=== PATIENT | female | born 1955 ===

== ENCOUNTER 2018-07-15 16:28 | Inpatient (IN) | payer MEDICARE, MEDICAID ==
[2018-07-15 16:40] VITALS: BMI 28.8
[2018-07-15] MEDS ORDERED: Sodium Chloride 0.9% 1,000 ML IV ONE (16:42)
--- NOTE | 2018-07-15 16:43 | C.PDOC ---
History Of Present Illness 62 y/o female with PMHx of depression and anxiety brought in via EMS for possible overdose. As per family, EMS was called due to concern for intentional overdose of Oxycodone and Xanax today. All history provided by family. denies patient having prior hx of suicidal ideation. He states that patient usually takes these medications as prescribed. Patient was last seen yesterday and was normal. This morning, he got a call from her stating that she was depressed and took extra pills, unknown quantity. As per EMS, no response with intranasal Narcan given en route, minimal response with Narcan 2 mg IV. Patient then fell asleep again en route per EMS. Time Seen by Provider: 07/15/18 16:31 Chief Complaint (Nursing): Substance Abuse History Per: Patient History/Exam Limitations: clinical condition Onset/Duration Of Symptoms: Unknown Suicide/Self Injury Attempted (Context): Ingestion (Xanax and Oxycodone) Involuntary Hold By: None Additional History Per: EMS, Family Past Medical History Reviewed: Historical Data, Nursing Documentation, Vital Signs Vital Signs: Last Vital Signs Temp 97.4 F L 07/15/18 16:40 Pulse 73 07/15/18 16:40 Resp 11 L 07/15/18 16:40 BP 100/63 07/15/18 16:40 Pulse Ox 100 07/15/18 17:55 - Medical History PMH: Anxiety, Depression, Hypercholesterolemia Denies: Chronic Kidney Disease Surgical History: Endoscopy, Tonsillectomy - [facility] COLONOSCOPY (04/18/13) ENDOSC POLYPECTOMY OF LG INTEST (06/01/14) TETANUS TOXOID ADMINIST (07/31/13) THERAPEUT DISTENT BLADD (01/27/15) Family History: States: Unknown Family Hx - Social History Hx Tobacco Use: No Hx Alcohol Use: No Hx Substance Use: Yes - Immunization History Hx Tetanus Toxoid Vaccination: No Hx Influenza Vaccination: No Hx Pneumococcal Vaccination: No Review Of Systems Review Of Systems: ROS cannot be obtained secondary to pt's inabilty to answer questions. Physical Exam - Physical Exam Skin: Normal Color, Warm, Dry Head: Atraumatic, Normacephalic Eye(s): bilateral: Other (Pupils equal, sluggish) Neck: Supple Chest: Symmetrical Cardiovascular: Rhythm Regular, No Murmur Respiratory: Other (Lungs with spontaneous respirations, Normal rate) Gastrointestinal/Abdominal: Soft, No Tenderness, No Distention Extremity: Bilateral: Atraumatic, Normal Color And Temperature Pulses: Left Radial: Normal, Right Radial: Normal Neurological/Psych: Normal Reflexes (+) deep gag reflex with stimulus, (+) deep pain stimulus), Other (Patient appears grossly intoxicated; nonverbal, not interactive) ED Course And Treatment - Laboratory Results Result Diagrams: 07/15/18 16:55 07/15/18 16:55 Interpretation Of Abnormal: ABG NO HYPOXEMIA, CO2 RETENTION. ECG: Interpreted By Me ECG Rhythm: Sinus Rhythm Rate From EC O2 Sat by Pulse Oximetry: 100 (Non-Rebreather) Pulse Ox Interpretation: Normal - Radiology CXR: Interpreted by Me, Viewed By Me CXR Interpretation: Yes: No Acute Disease Progress - Re-Evaluation Re-evaluation Note: 07/15/18 17:17 SP STRAIGHT CATH. PT SPONT AWOKE. PS INTENTIONALLY TOOK PERCOCET, XANAX, CYMBALTA DUE TO CHRONIC PAIN EXAC. PT DENIES SI/SA 07/15/18 17:25 RECUR SLEEPING. 100% O2 CAPNOMTER @ 48. EXAM UNCH PRIOR 07/15/18 17:37 D/W [place] POISONS: RECOMMEND REPEAT TYL, LFT, PT/T 4 HRS AFTER INITIAL DRAW. CAN WAIT FOR ACETADOTE DOSE PENDING CMP. GIVE ACETADOTE IF ELEV LFT. 07/15/18 17:54 SP NARCAN, PT W IMPROVED RESPONSE. PT NOW STATES S/P INTENTIONAL OVERDOSE AND TOOK "WHOLE BOTTLE" OF PERCOCET, XANAX AND CYMBALTA. UNK DOSE AND QUANTITY. WILL START ACETADOTE 07/15/18 18:00 D/W DR OSMAN C/F ICU : AWARE OF ER FINDINGS, ACCEPTS FOR ICU 07/15/18 18:03 D/W DR Qasim JUSTIN [employer] TESTER WILL ADMIT - Data Reviewed Data Reviewed: Lab, Diagnostic imaging, EKG, Old records - Critical Care Citical Care: Excluding Proc Time Critical Care Time: 120 minutes - Continuity of Care Discussed patient case with:: Patient, Family-HIPPA compliant Medical Decision Making Medical Decision Making: Impression: Overdose, Suicide attempt Initial Plan: --EKG --ABG --Alcohol serum --Urine drug screen --Salicylate --Acetaminophen --CMP --CBC --UA --Chest X-Ray --IV fluids Disposition Counseled Patient/Family Regarding: Studies Performed, Diagnosis - Disposition Disposition: HOSPITALIZED Disposition Time: 18:01 Condition: CRITICAL Forms: [facility] (Yoruba) - POA Present On Arrival: None - Clinical Impression Clinical Impression: Intentional acetaminophen overdose, Overdose of benzodiazepine, Respiratory depression - Scribe Statement The provider has reviewed the documentation as recorded by the Juliethibanna Jimenez Provider Attestation: All medical record entries made by the Juliethibe were at my direction and personally dictated by me. I have reviewed the chart and agree that the record accurately reflects my personal performance of the history, physical exam, medical decision making, and the department course for this patient. I have also personally directed, reviewed, and agree with the discharge instructions and disposition. Decision To Admit - Pt Status Changed To: Hospital Disposition Of: Inpatient - Admit Certification Admit to Inpatient:: After my assessment, the patient will require hospitalization for at least two midnights. This is because of the severity of symptoms shown, intensity of services needed, and/or the medical risk in this patient being treated as an outpatient. - InPatient: Physician Admission Certification: I certify that this patient requires 2 or more midnights of care for the following reason:: SEE NOTE - . Bed Request Type: ICU Admitting Physician: Dea Justin Patient Diagnosis: Intentional acetaminophen overdose, Overdose of benzodiazepine, Respiratory depression
[2018-07-15 16:59] LABS: BASO # 0.1 K/uL (0.0-0.2); BASO % 0.6 % (0.0-2.0); EOS % 0.4 % (0.0-4.0); HEMOGLOBIN 13.2 g/dL (11.0-16.0); LYMPH # 1.7 K/uL (1.0-4.3); MEAN CELL VOLUME 93.4 fL (81.0-99.0); MEAN CORPUSCULAR HEMOGLOBIN 30.9 pg (27.0-31.0); MEAN CORPUSCULAR HGB CONC 33.1 g/dL (33.0-37.0); MEAN PLATELET VOLUME 7.6 fL (7.2-11.7); MONO # 0.6 K/uL (0.0-0.8); MONO % 6.7 % (0.0-10.0); NEUT # 6.5 K/uL (1.8-7.0); NEUT % 73.3 % (50.0-75.0); NRBC % 0.1 % (0.0-2.0); RBC 4.29 Mil/uL (3.80-5.20); RED CELL DISTRIBUTION WIDTH 13.6 % (11.5-14.5)
[2018-07-15 17:03] LABS: WHITE BLOOD COUNT 8.8 K/uL (4.8-10.8)
[2018-07-15 17:25] LABS: ABG ALLEN TEST POS; ARTERIAL BLOOD GAS HCO3 23.8 mmol/L (21-28); ARTERIAL BLOOD GAS O2 SAT 99.2 % (95-98); ARTERIAL BLOOD GAS PCO2 44 mm/Hg (35-45); ARTERIAL BLOOD GAS PH 7.35 (7.35-7.45); ARTERIAL BLOOD GAS PO2 177 mm/Hg (80-100); ARTERIAL BLOOD GAS TCO2 25.7 mmol/L (22-28)
[2018-07-15 17:27] LABS: SALICYLATE < 1.0 mg/dL 1
[2018-07-15 17:32] LABS: SQUAMOUS EPITHIAL < 1 /hpf (0-5); URINE BACTERIA RARE (<OCC); URINE BILIRUBIN NEGATIVE (NEGATIVE); URINE BLOOD NEGATIVE (NEGATIVE); URINE CLARITY Clear (Clear); URINE COLOR Yellow (YELLOW); URINE GLUCOSE (UA) NORMAL (Normal); URINE LEUKOCYTE ESTERASE NEG Leu/uL (Negative); URINE PROTEIN NEGATIVE (NEGATIVE); URINE UROBILINOGEN NORMAL mg/dL (0.2-1.0)
[2018-07-15] MEDS ORDERED: Naloxone 0.4 mg/ml Inj (Adult) ONE (17:42)
[2018-07-15 17:47] LABS: ALB/GLOB RATIO 1.2 (1.0-2.1); ALBUMIN 3.9 g/dL (3.5-5.0); ALT/SGPT 26 U/L (9-52); AST/SGOT 20 U/L (14-36); BLOOD UREA NITROGEN 9 mg/dL (7-17); CALCIUM 9.2 mg/dl (8.6-10.4); GFR NON-AFRICAN AMERICAN > 60
[2018-07-15 17:53] LABS: BARBITURATES, UR NEGATIVE (NEGATIVE); PHENCYCLIDINE, UR NEGATIVE (NEGATIVE)
[2018-07-15] MEDS ORDERED: ACETYLCYSTEINE IVPB ONE (17:53)
[2018-07-15] MEDS ORDERED: DEXTROSE 5% IVPB ONE (17:53)
[2018-07-15] MEDS ORDERED: WATER IVPB ONE (17:53)
[2018-07-15 17:54] LABS: BENZODIAZEPINES, UR POSITIVE (NEGATIVE); OPIATES, UR POSITIVE (NEGATIVE)
--- NOTE | 2018-07-15 17:57 | RAD ---
Date of service: 07/15/2018 PROCEDURE: CHEST RADIOGRAPH, 1 VIEW HISTORY: Overdosed COMPARISON: None available. FINDINGS: LUNGS: Minor bibasilar atelectasis. PLEURA: No pneumothorax or pleural fluid seen. CARDIOVASCULAR: Heart size is upper limits of normal/ borderline enlarged OSSEOUS STRUCTURES: No significant abnormalities. VISUALIZED UPPER ABDOMEN: Normal. OTHER FINDINGS: None. IMPRESSION: Mild bibasilar atelectasis.
[2018-07-15] MEDS ORDERED: Naloxone 0.4 mg/ml Inj (Adult) IVP ONE (18:00)
[2018-07-15 18:13] LABS: INR 1.1; PROTHROMBIN TIME 11.5 SECONDS (9.7-12.2)
--- NOTE | 2018-07-15 18:57 | CP.PCM.CON ---
History of Present Illness - History of Present Illness History of Present Illness: Chief command: Drug overdose HPI: 62-year-old female with a history of depression, anxiety, ulcerative colitis taking multiple pain medication came to the emergency room after she was found to taking 1 mg Xanax tablets of 20, and also multiple Percocet, nearly the whole bottle as per the patient, but amount is not clear. Patient's daughter is next to her, but she does not know much about the patient' s history. Patient is now responding. With a deep stability patient is answering questions. She was comparing of some abdominal pain. She has no nausea no vomiting. In the emergency room patient was evaluated, currently receiving Acetadote intravenously Past medical history: Anxiety depression hypercholesteremia, ulcerative colitis. She had endoscopy in the past. Patient has no history of alcohol or smoking. Review of system: Currently patient is awake and responding, but easily dozing off. Comparing of abdominal pain. No nausea no vomiting Vital signs stable. Chest good air entry Regular heart sound Nontender abdomen No pedal edema Labs reviewed Nonspecific and lactate normal liver function test is normal elevated Tylenol level noted worse. Positive Assessment: 62-year-old female with a history of depression and anxiety hypertension. Also ulcerative colitis on Xanax and pain medication unclear Now admitted with acute to drug overdose Tylenol overdose opiate overdose Xanax overdose he Patient is currently able to breathe well on nasal cannula. Will continue to monitor in the intensive care unit one-to-one observation psychotic evaluation will follow-up the patient in the ICU IV fluid Past Patient History - Infectious Disease Hx of Infectious Diseases: None - Past Medical History & Family History Past Medical History?: Yes - Past Social History Smoking Status: Never Smoked - CARDIAC Hx Hypercholesterolemia: Yes - PULMONARY Hx Respiratory Disorders: No - NEUROLOGICAL Hx Neurological Disorder: No - HEENT Hx HEENT Problems: Yes Hx Cataracts: Yes (bilat iol) - RENAL Hx Chronic Kidney Disease: No - ENDOCRINE/METABOLIC Hx Endocrine Disorders: No - HEMATOLOGICAL/ONCOLOGICAL Hx Blood Disorders: No - INTEGUMENTARY Hx Dermatological Problems: No - MUSCULOSKELETAL/RHEUMATOLOGICAL Hx Musculoskeletal Disorders: Yes Hx Osteoarthritis: Yes - GASTROINTESTINAL Hx Gastrointestinal Disorders: Yes Hx Colitis: Yes Hx Gastroesophageal Reflux: Yes - GENITOURINARY/GYNECOLOGICAL Hx Genitourinary Disorders: Yes Hx Urinary Tract Infection: Yes (CHRONIC CYSTITIS) Other/Comment: urethral stricture - PSYCHIATRIC Hx Anxiety: Yes Hx Depression: Yes Hx Substance Use: Yes - SURGICAL HISTORY Hx Tonsillectomy: Yes - ANESTHESIA Hx Anesthesia: Yes Hx Malignant Hyperthermia: No Meds Allergies/Adverse Reactions: Allergies Allergy/AdvReac Type Severity Reaction Status Date / Time caffeine Allergy Verified 07/15/18 16:34 milk Allergy Verified 07/15/18 16:34 Penicillins Allergy Verified 07/15/18 16:34 - Medications Medications: Current Medications Sodium Chloride (Sodium Chloride 0.9%) 1,000 mls @ 250 mls/hr IV .Q4H ONE Stop: 07/15/18 20:41 Last Admin: 07/15/18 16:55 Dose: 250 mls/hr Acetylcysteine 11,430 mg/ (Dextrose) 257.15 mls @ 200 mls/hr IVPB ONCE ONE Stop: 07/15/18 19:10 Last Admin: 07/15/18 18:21 Dose: 200 mls/hr Results - Vital Signs Recent Vital Signs: Last Vital Signs Temp 97.4 F L 07/15/18 16:40 Pulse 72 07/15/18 18:30 Resp 15 07/15/18 18:30 BP 100/63 07/15/18 18:30 Pulse Ox 100 07/15/18 18:30 - Labs Result Diagrams: 07/15/18 16:55 07/15/18 16:55 Labs: Laboratory Results - last 24 hr 07/15/18 07/15/18 07/15/18 16:34 16:55 16:55 WBC 8.8 D RBC 4.29 Hgb 13.2 Hct 40.0 MCV 93.4 MCH 30.9 MCHC 33.1 RDW 13.6 Plt Count 248 MPV 7.6 Neut % (Auto) 73.3 Lymph % (Auto) 19.0 L [place] % (Auto) 6.7 Eos % (Auto) 0.4 Baso % (Auto) 0.6 Neut # (Auto) 6.5 Lymph # (Auto) 1.7 [place] # (Auto) 0.6 Eos # (Auto) 0.0 Baso # (Auto) 0.1 PT INR APTT Puncture Site pCO2 pO2 HCO3 ABG pH ABG Total CO2 ABG O2 Saturation ABG Base Excess Sung Test ABG Potassium A-a O2 Difference Respiratory Index Glucose Lactate Liter Flow FiO2 Sodium 136 Potassium 4.0 Chloride 102 Carbon Dioxide 25 Anion Gap 13 BUN 9 Creatinine 0.7 Est GFR ( Amer) > 60 Est GFR (Non-Af Amer) > 60 POC Glucose (mg/dL) 122 H Random Glucose 121 H Calcium 9.2 Total Bilirubin 0.4 AST 20 ALT 26 Alkaline Phosphatase 73 Total Protein 7.0 Albumin 3.9 Globulin 3.2 Albumin/Globulin Ratio 1.2 Arterial Blood Potassium Urine Color Urine Clarity Urine pH Ur Specific [place] Urine Protein Urine Glucose (UA) Urine Ketones Urine Blood Urine Nitrate Urine Bilirubin Urine Urobilinogen Ur Leukocyte Esterase Urine WBC (Auto) Urine RBC (Auto) Ur Squamous Epith Cells Urine Bacteria Salicylates Urine Opiates Screen Urine Methadone Screen Acetaminophen Ur Barbiturates Screen Ur Phencyclidine Scrn Ur Amphetamines Screen U Benzodiazepines Scrn U Oth Cocaine Metabols U Cannabinoids Screen Alcohol, Quantitative < 10 07/15/18 07/15/18 07/15/18 16:55 17:18 17:18 WBC RBC Hgb Hct MCV MCH MCHC RDW Plt Count MPV Neut % (Auto) Lymph % (Auto) [place] % (Auto) Eos % (Auto) Baso % (Auto) Neut # (Auto) Lymph # (Auto) [place] # (Auto) Eos # (Auto) Baso # (Auto) PT INR APTT Puncture Site pCO2 pO2 HCO3 ABG pH ABG Total CO2 ABG O2 Saturation ABG Base Excess Sung Test ABG Potassium A-a O2 Difference Respiratory Index Glucose Lactate Liter Flow FiO2 Sodium Potassium Chloride Carbon Dioxide Anion Gap BUN Creatinine Est GFR ( Amer) Est GFR (Non-Af Amer) POC Glucose (mg/dL) Random Glucose Calcium Total Bilirubin AST ALT Alkaline Phosphatase Total Protein Albumin Globulin Albumin/Globulin Ratio Arterial Blood Potassium Urine Color Yellow Urine Clarity Clear Urine pH 6.0 Ur Specific [place] 1.016 Urine Protein Negative Urine Glucose (UA) Normal Urine Ketones Negative Urine Blood Negative Urine Nitrate Negative Urine Bilirubin Negative Urine Urobilinogen Normal Ur Leukocyte Esterase Neg Urine WBC (Auto) 1 Urine RBC (Auto) < 1 Ur Squamous Epith Cells < 1 Urine Bacteria Rare Salicylates < 1.0 Urine Opiates Screen Positive H Urine Methadone Screen Negative Acetaminophen 55.0 H Ur Barbiturates Screen Negative Ur Phencyclidine Scrn Negative Ur Amphetamines Screen Negative U Benzodiazepines Scrn Positive U Oth Cocaine Metabols Negative U Cannabinoids Screen Negative Alcohol, Quantitative 07/15/18 07/15/18 17:22 17:58 WBC RBC Hgb Hct MCV MCH MCHC RDW Plt Count MPV Neut % (Auto) Lymph % (Auto) [place] % (Auto) Eos % (Auto) Baso % (Auto) Neut # (Auto) Lymph # (Auto) [place] # (Auto) Eos # (Auto) Baso # (Auto) PT 11.5 INR 1.1 APTT 32 Puncture Site Rra pCO2 44 pO2 177 H HCO3 23.8 ABG pH 7.35 ABG Total CO2 25.7 ABG O2 Saturation 99.2 H ABG Base Excess -1.5 Sung Test Pos ABG Potassium 3.7 A-a O2 Difference 25.0 Respiratory Index 0.1 Glucose 108 H Lactate 0.6 L Liter Flow 4.0 FiO2 36.0 Sodium 136.0 Potassium Chloride 108.0 H Carbon Dioxide Anion Gap BUN Creatinine Est GFR ( Amer) Est GFR (Non-Af Amer) POC Glucose (mg/dL) Random Glucose Calcium Total Bilirubin AST ALT Alkaline Phosphatase Total Protein Albumin Globulin Albumin/Globulin Ratio Arterial Blood Potassium 3.7 Urine Color Urine Clarity Urine pH Ur Specific [place] Urine Protein Urine Glucose (UA) Urine Ketones Urine Blood Urine Nitrate Urine Bilirubin Urine Urobilinogen Ur Leukocyte Esterase Urine WBC (Auto) Urine RBC (Auto) Ur Squamous Epith Cells Urine Bacteria Salicylates Urine Opiates Screen Urine Methadone Screen Acetaminophen Ur Barbiturates Screen Ur Phencyclidine Scrn Ur Amphetamines Screen U Benzodiazepines Scrn U Oth Cocaine Metabols U Cannabinoids Screen Alcohol, Quantitative
[2018-07-15] MEDS: Sodium Chloride 0.9% 1,000 ML IV SCH (19:00)
--- NOTE | 2018-07-15 19:35 | CP.PCM.HP ---
History of Present Illness - History of Present Illness History of Present Illness: 62-year-old female with PMH of depression, anxiety, using taking multiple pain medications brought in via EMS for possible overdose. History provided by family. denies patient having prior history of suicidal ideation. This morning he got a call from her stating that she was feeling depressed and took extra pills of unknown quantity. As per EMS there is no response with intranasal Narcan given Antivert, minimal response with Narcan 2 mg IV. Patient then fell asleep again en route per EMS Present on Admission - Present on Admission Any Indicators Present on Admission: No Past Patient History - Infectious Disease Hx of Infectious Diseases: None - Past Medical History & Family History Past Medical History?: Yes - Past Social History Smoking Status: Never Smoked - CARDIAC Hx Hypercholesterolemia: Yes - PULMONARY Hx Respiratory Disorders: No - NEUROLOGICAL Hx Neurological Disorder: No - HEENT Hx HEENT Problems: Yes Hx Cataracts: Yes (bilat iol) - RENAL Hx Chronic Kidney Disease: No - ENDOCRINE/METABOLIC Hx Endocrine Disorders: No - HEMATOLOGICAL/ONCOLOGICAL Hx Blood Disorders: No - INTEGUMENTARY Hx Dermatological Problems: No - MUSCULOSKELETAL/RHEUMATOLOGICAL Hx Musculoskeletal Disorders: Yes Hx Osteoarthritis: Yes - GASTROINTESTINAL Hx Gastrointestinal Disorders: Yes Hx Colitis: Yes Hx Gastroesophageal Reflux: Yes - GENITOURINARY/GYNECOLOGICAL Hx Genitourinary Disorders: Yes Hx Urinary Tract Infection: Yes (CHRONIC CYSTITIS) Other/Comment: urethral stricture - PSYCHIATRIC Hx Anxiety: Yes Hx Depression: Yes Hx Substance Use: Yes - SURGICAL HISTORY Hx Tonsillectomy: Yes - ANESTHESIA Hx Anesthesia: Yes Hx Malignant Hyperthermia: No Meds Home Medications: Home Medication List Medication Instructions Recorded Confirmed Type Escitalopram [Lexapro] 10 mg PO DAILY 7 Days tab 07/18/18 Rx traZODone [Desyrel] 100 mg PO HS 7 Days tab 07/18/18 Rx Allergies/Adverse Reactions: Allergies Allergy/AdvReac Type Severity Reaction Status Date / Time caffeine Allergy Verified 07/15/18 16:34 milk Allergy Verified 07/15/18 16:34 Penicillins Allergy Verified 07/15/18 16:34 Physical Exam - Constitutional Appears: Well - Head Exam Head Exam: ATRAUMATIC, NORMAL INSPECTION, NORMOCEPHALIC - Eye Exam Eye Exam: EOMI, Normal appearance, PERRL Pupil Exam: NORMAL ACCOMODATION, PERRL - ENT Exam ENT Exam: Mucous Membranes Moist, Normal Exam - Neck Exam Neck exam: Positive for: Normal Inspection - Respiratory Exam Respiratory Exam: Decreased Breath Sounds - Cardiovascular Exam Cardiovascular Exam: REGULAR RHYTHM, +S1, +S2 - GI/Abdominal Exam GI & Abdominal Exam: Diminished Bowel Sounds, Soft - Rectal Exam Rectal Exam: Deferred Results - Vital Signs Recent Vital Signs: Last Vital Signs Temp 97.4 F L 07/15/18 16:40 Pulse 72 07/15/18 18:30 Resp 15 07/15/18 18:30 BP 100/63 07/15/18 18:30 Pulse Ox 100 07/15/18 18:30 - Labs Result Diagrams: 07/18/18 07:31 07/18/18 07:31 Labs: Laboratory Results - last 24 hr 07/15/18 07/15/18 07/15/18 16:34 16:55 16:55 WBC 8.8 D RBC 4.29 Hgb 13.2 Hct 40.0 MCV 93.4 MCH 30.9 MCHC 33.1 RDW 13.6 Plt Count 248 MPV 7.6 Neut % (Auto) 73.3 Lymph % (Auto) 19.0 L [place] % (Auto) 6.7 Eos % (Auto) 0.4 Baso % (Auto) 0.6 Neut # (Auto) 6.5 Lymph # (Auto) 1.7 [place] # (Auto) 0.6 Eos # (Auto) 0.0 Baso # (Auto) 0.1 PT INR APTT Puncture Site pCO2 pO2 HCO3 ABG pH ABG Total CO2 ABG O2 Saturation ABG Base Excess Sung Test ABG Potassium A-a O2 Difference Respiratory Index Glucose Lactate Liter Flow FiO2 Sodium 136 Potassium 4.0 Chloride 102 Carbon Dioxide 25 Anion Gap 13 BUN 9 Creatinine 0.7 Est GFR ( Amer) > 60 Est GFR (Non-Af Amer) > 60 POC Glucose (mg/dL) 122 H Random Glucose 121 H Calcium 9.2 Total Bilirubin 0.4 AST 20 ALT 26 Alkaline Phosphatase 73 Total Protein 7.0 Albumin 3.9 Globulin 3.2 Albumin/Globulin Ratio 1.2 Arterial Blood Potassium Urine Color Urine Clarity Urine pH Ur Specific [place] Urine Protein Urine Glucose (UA) Urine Ketones Urine Blood Urine Nitrate Urine Bilirubin Urine Urobilinogen Ur Leukocyte Esterase Urine WBC (Auto) Urine RBC (Auto) Ur Squamous Epith Cells Urine Bacteria Salicylates Urine Opiates Screen Urine Methadone Screen Acetaminophen Ur Barbiturates Screen Ur Phencyclidine Scrn Ur Amphetamines Screen U Benzodiazepines Scrn U Oth Cocaine Metabols U Cannabinoids Screen Alcohol, Quantitative < 10 07/15/18 07/15/18 07/15/18 16:55 17:18 17:18 WBC RBC Hgb Hct MCV MCH MCHC RDW Plt Count MPV Neut % (Auto) Lymph % (Auto) [place] % (Auto) Eos % (Auto) Baso % (Auto) Neut # (Auto) Lymph # (Auto) [place] # (Auto) Eos # (Auto) Baso # (Auto) PT INR APTT Puncture Site pCO2 pO2 HCO3 ABG pH ABG Total CO2 ABG O2 Saturation ABG Base Excess Sung Test ABG Potassium A-a O2 Difference Respiratory Index Glucose Lactate Liter Flow FiO2 Sodium Potassium Chloride Carbon Dioxide Anion Gap BUN Creatinine Est GFR ( Amer) Est GFR (Non-Af Amer) POC Glucose (mg/dL) Random Glucose Calcium Total Bilirubin AST ALT Alkaline Phosphatase Total Protein Albumin Globulin Albumin/Globulin Ratio Arterial Blood Potassium Urine Color Yellow Urine Clarity Clear Urine pH 6.0 Ur Specific [place] 1.016 Urine Protein Negative Urine Glucose (UA) Normal Urine Ketones Negative Urine Blood Negative Urine Nitrate Negative Urine Bilirubin Negative Urine Urobilinogen Normal Ur Leukocyte Esterase Neg Urine WBC (Auto) 1 Urine RBC (Auto) < 1 Ur Squamous Epith Cells < 1 Urine Bacteria Rare Salicylates < 1.0 Urine Opiates Screen Positive H Urine Methadone Screen Negative Acetaminophen 55.0 H Ur Barbiturates Screen Negative Ur Phencyclidine Scrn Negative Ur Amphetamines Screen Negative U Benzodiazepines Scrn Positive U Oth Cocaine Metabols Negative U Cannabinoids Screen Negative Alcohol, Quantitative 07/15/18 07/15/18 17:22 17:58 WBC RBC Hgb Hct MCV MCH MCHC RDW Plt Count MPV Neut % (Auto) Lymph % (Auto) [place] % (Auto) Eos % (Auto) Baso % (Auto) Neut # (Auto) Lymph # (Auto) [place] # (Auto) Eos # (Auto) Baso # (Auto) PT 11.5 INR 1.1 APTT 32 Puncture Site Rra pCO2 44 pO2 177 H HCO3 23.8 ABG pH 7.35 ABG Total CO2 25.7 ABG O2 Saturation 99.2 H ABG Base Excess -1.5 Sung Test Pos ABG Potassium 3.7 A-a O2 Difference 25.0 Respiratory Index 0.1 Glucose 108 H Lactate 0.6 L Liter Flow 4.0 FiO2 36.0 Sodium 136.0 Potassium Chloride 108.0 H Carbon Dioxide Anion Gap BUN Creatinine Est GFR ( Amer) Est GFR (Non-Af Amer) POC Glucose (mg/dL) Random Glucose Calcium Total Bilirubin AST ALT Alkaline Phosphatase Total Protein Albumin Globulin Albumin/Globulin Ratio Arterial Blood Potassium 3.7 Urine Color Urine Clarity Urine pH Ur Specific [place] Urine Protein Urine Glucose (UA) Urine Ketones Urine Blood Urine Nitrate Urine Bilirubin Urine Urobilinogen Ur Leukocyte Esterase Urine WBC (Auto) Urine RBC (Auto) Ur Squamous Epith Cells Urine Bacteria Salicylates Urine Opiates Screen Urine Methadone Screen Acetaminophen Ur Barbiturates Screen Ur Phencyclidine Scrn Ur Amphetamines Screen U Benzodiazepines Scrn U Oth Cocaine Metabols U Cannabinoids Screen Alcohol, Quantitative
[2018-07-15 21:25] LABS: INR 1.1; PROTHROMBIN TIME 11.8 SECONDS (9.7-12.2)
[2018-07-15 21:33] LABS: ALB/GLOB RATIO 1.2 (1.0-2.1); ALBUMIN 3.5 g/dL (3.5-5.0); ALT/SGPT 23 U/L (9-52); AST/SGOT 13 U/L (14-36); BLOOD UREA NITROGEN 8 mg/dL (7-17); CALCIUM 8.5 mg/dl (8.6-10.4); GFR NON-AFRICAN AMERICAN > 60
[2018-07-16] MEDS: MethylPREDNISolone 40 mg Vial IVP SCH ×4 (03:45→20:35)
[2018-07-16] MEDS: Sodium Chloride 0.9% 1,000 ML IV SCH ×2 (05:51→15:03)
[2018-07-16 06:11] LABS: BASO % 0.2 % (0.0-2.0); HEMOGLOBIN 13.9 g/dL (11.0-16.0); LYMPH # 0.8 K/uL (1.0-4.3); LYMPH % 10.8 % (20.0-40.0); MEAN CELL VOLUME 93.2 fL (81.0-99.0); MEAN CORPUSCULAR HEMOGLOBIN 31.5 pg (27.0-31.0); MEAN CORPUSCULAR HGB CONC 33.9 g/dL (33.0-37.0); MEAN PLATELET VOLUME 8.4 fL (7.2-11.7); MONO # 0.1 K/uL (0.0-0.8); MONO % 1.2 % (0.0-10.0); NEUT # 6.4 K/uL (1.8-7.0); NEUT % 87.8 % (50.0-75.0); RBC 4.41 Mil/uL (3.80-5.20); RED CELL DISTRIBUTION WIDTH 13.6 % (11.5-14.5); WHITE BLOOD COUNT 7.2 K/uL (4.8-10.8)
[2018-07-16 06:34] LABS: ALB/GLOB RATIO 1.1 (1.0-2.1); ALBUMIN 3.6 g/dL (3.5-5.0)
[2018-07-16 06:59] LABS: ALT/SGPT 23 U/L (9-52); AMYLASE 66 U/L (30-110); AST/SGOT 13 U/L (14-36); BLOOD UREA NITROGEN 8 mg/dL (7-17); CALCIUM 8.4 mg/dl (8.6-10.4); GFR NON-AFRICAN AMERICAN > 60; LIPASE 59 U/L (23-300)
--- NOTE | 2018-07-16 09:43 | PCM.PSYCH ---
Initial Psychiatric Evaluation - Initial Psychiatric Evaluation Type of Admission: Involuntary Legal Status: Capacity Chief Complaint (in patient's own words): I was desperate. History of Present Illness and Precipitating Events: PGY-1 Initial Psychiatric Evaluation note for Dr. Enamorado. 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 Patient was admitted for ingestion of unknown amount of Percocet, Lexapro, and Xanax in apparent suicide attempt. Precipitating factors include increasing depression for the last 2 weeks due to constant pain from ulcerative colitis, as well as increased stress from financial problems and being evicted from her home. States it was not premeditated, but decided to take her pills in a moment of desperation. Patient states that she is unhappy to be alive and does not feel safe being alone at this time. Patient denies any prior suicide attempt. Denies prior psychiatric hospitalization. Patient does have a history of depression and anxiety for which she sees a private psychiatrist and takes Lexapro 20mg daily and Xanax 1mg BID. Patient also complains of difficulty sleeping, anhedonia, decreased energy, psychomotor retardation, and excessive worrying. Denies racing thoughts, increased energy, grandiosity, distractibility , shortness of breath, palpitations, visual and auditory hallucinations and homicidal ideation. Psychiatric History: depression, anxiety. Sees private psychiatrist. PMHx:ulcerative colitis and chronic cystitis Psych hospitalizations: none Family Psych hx: none Social: Denies tobacco use, alcohol use and illicit drug use. single, has 3 adult children, lives alone, and unemployed (last worked at a [employer] store in 2012) Current Medications: Active Medications Generic Name Dose Route Start Last Admin Trade Name Freq PRN Reason Stop Dose Admin Heparin Sodium (Porcine) 5,000 units 07/16/18 06:00 07/16/18 05:49 Heparin SC Not Given Q8 KESHAV Sodium Chloride 1,000 mls @ 100 mls/hr 07/15/18 19:00 07/16/18 05:51 Sodium Chloride 0.9% IV 100 mls/hr .Q10H KESHAV Administration Methylprednisolone 40 mg 07/16/18 02:15 07/16/18 07:41 Solu-Medrol IVP 40 mg Q6H KESHAV Administration Pantoprazole Sodium 40 mg 07/16/18 10:00 Protonix Inj IVP DAILY KESHAV Past Psychiatric History - Past Psychiatric History Pertinent Medical Hx (Current Medical&Sleep Prob, Allergies): Allergies Allergy/AdvReac Type Severity Reaction Status Date / Time caffeine Allergy Verified 07/15/18 16:34 milk Allergy Verified 07/15/18 16:34 Penicillins Allergy Verified 07/15/18 16:34 Acetaminophen/Oxycodone Hydr [Oxycodone and Acetaminophen 325 mg-10 mg] 1 tab PO QID PRN 06/01/14 Alprazolam 1 mg PO BID 06/01/14 Escitalopram [Lexapro] 20 mg PO DAILY 06/01/14 Pravastatin Sodium [Pravastatin] 20 mg PO DAILY 01/25/15 Omeprazole 07/15/18 Review of Systems - Psychiatric Psychiatric: Abnormal Sleep Pattern, Anhedonia, Anxiety, Depression, Hopelessness. absent: Auditory Hallucinations, Change in Appetite, Confusion, Difficulty Concentrating, Hallucinations, Homicidal Ideation, Irritability, Memory Loss, Panic Attacks, Paranoia, Visual Hallucinations, Tactile Hallucinations Mental Status Examination - Personal Presentation Personal Presentation: Looks stated age - Affect Affect: Constricted, Depressed - Motor Activity Motor Activity: Calm - Reliability in Providing Information Reliability in Providing Information: Fair - Speech Speech: Organized, Relevant - Mood Mood: Depressed (tearful), Anxious - Formal Thought Process Formal Thought Process: No Impairment - Obsessions/Compulsions Obsessions: No Compulsions: No - Cognitive Functions Orientation: Person, Place, Situation, Time Sensorium: Drowsy, Lethargic Estimate of Intelligence: Average Judgement: Imparied, as evidence by: Poor judgement Memory: Recent impaired, as evidence by: Inability to recall events of the day - Risk Risk: Suicidal - Limitations Limitations: Living alone, Other (co-morbidities) DSM 5 DX - DSM 5 DSM 5 Diagnosis: Major Depressive Disorder- single episode, severe without psychosis - Recommended/Plan of Treatment Treatment Recommendations and Plan of Treatment: Continue 1:1 for safety Supportive therapy and psychoeducation given Refer to outpatient program Teach healthy lifestyle methods
[2018-07-16] MEDS ORDERED: ACETYLCYSTEINE IVPB ONE ×2 (11:00→16:19)
[2018-07-16] MEDS ORDERED: DEXTROSE 5% IVPB ONE ×2 (11:00→16:19)
[2018-07-16] MEDS ORDERED: WATER IVPB ONE ×2 (11:00→16:19)
--- NOTE | 2018-07-16 11:32 | CP.CCUPN ---
<Helder Patterson - Last Filed: 07/16/18 11:20> CCU Subjective - Physician Review Subjective (Free Text): Critical care progress note: Pt seen and examined at bedside.No acute events overnight. Patient is slightly lethargic however responds to questions appropriately. Denies any complaints. 12 Point ROS performed and neg other than stated above. CCU Objective - Vital Signs / Intake & Output Vital Signs (Last 4 hours): Vital Signs Temp Pulse Resp BP Pulse Ox 07/16/18 10:20 76 99 07/16/18 10:10 70 99 07/16/18 10:00 75 100 07/16/18 09:50 78 99 07/16/18 09:40 63 100 07/16/18 09:30 64 100 07/16/18 09:20 60 100 07/16/18 09:10 64 99 07/16/18 09:00 62 100 07/16/18 08:50 64 100 07/16/18 08:45 63 108/69 100 07/16/18 08:40 65 100 07/16/18 08:30 63 99 07/16/18 08:20 67 99 07/16/18 08:10 68 100 07/16/18 08:06 62 131/73 100 07/16/18 08:00 97.4 F L 60 100 07/16/18 07:50 61 100 07/16/18 07:40 62 100 07/16/18 07:36 65 134/74 100 07/16/18 07:30 63 11 L 100 Intake and Output (Last 8hrs): Intake & Output 07/15/18 07/16/18 07/16/18 22:59 06:59 14:59 Intake Total 300 800 510 Output Total 0 700 0 Balance 300 100 510 Weight 168 lb 165 lb Intake: Intake, IV Amount 300 800 510 Left Antecubital 300 800 500 Right Hand 10 Oral 0 0 0 Output: Urine 0 700 0 Urine, Voided 0 700 0 Stool 0 Oral Regurgitation 0 Other: Voiding Method Bedpan # Voids Urine, Voided 0 # Bowel Movements 0 - Physical Exam Head: Positive for: Atraumatic, Normocephalic Pupils: Positive for: PERRL Extroacular Muscles: Positive for: EOMI Conjunctiva: Positive for: Normal Respiratory/Chest: Positive for: Clear to Auscultation, Good Air Exchange. Negative for: Respiratory Distress, Accessory Muscle Use, Wheezes Cardiovascular: Positive for: Regular Rate and Rhythm, Normal S1, S2. Negative for: Murmurs, Rub, Gallop Abdomen: Positive for: Normal Bowel Sounds. Negative for: Tenderness, Distention Lower Extremity: Negative for: Edema, CALF TENDERNESS Neurological: Positive for: GCS=15, CN II-XII Intact, Speech Normal Skin: Positive for: Warm, Dry Psychiatric: Positive for: Alert, Oriented x 3 - Medications Active Medications: Active Medications Generic Name Dose Route Start Last Admin Trade Name Freq PRN Reason Stop Dose Admin Heparin Sodium (Porcine) 5,000 units 07/16/18 06:00 07/16/18 05:49 Heparin SC Not Given Q8 KESHAV Sodium Chloride 1,000 mls @ 100 mls/hr 07/15/18 19:00 07/16/18 05:51 Sodium Chloride 0.9% IV 100 mls/hr .Q10H KESHAV Administration Acetylcysteine 3,740 mg/ 518.7 mls @ 125 mls/hr 07/16/18 11:00 07/16/18 11:00 Dextrose IVPB 07/16/18 15:08 125 mls/hr ONCE ONE Administration Methylprednisolone 40 mg 07/16/18 02:15 07/16/18 07:41 Solu-Medrol IVP 40 mg Q6H KESHAV Administration Pantoprazole Sodium 40 mg 07/16/18 10:00 07/16/18 10:26 Protonix Inj IVP 40 mg DAILY KESHAV Administration - Patient Studies Lab Studies: Lab Studies 07/16/18 07/16/18 07/16/18 Range/Units 05:59 05:59 05:59 WBC 7.2 (4.8-10.8) K/uL RBC 4.41 (3.80-5.20) Mil/uL Hgb 13.9 (11.0-16.0) g/dL Hct 41.1 (34.0-47.0) % MCV 93.2 (81.0-99.0) fL MCH 31.5 H (27.0-31.0) pg MCHC 33.9 (33.0-37.0) g/dL RDW 13.6 (11.5-14.5) % Plt Count 245 (130-400) K/uL MPV 8.4 (7.2-11.7) fL Neut % (Auto) 87.8 H (50.0-75.0) % Lymph % (Auto) 10.8 L (20.0-40.0) % [place] % (Auto) 1.2 (0.0-10.0) % Eos % (Auto) 0.0 (0.0-4.0) % Baso % (Auto) 0.2 (0.0-2.0) % Neut # (Auto) 6.4 (1.8-7.0) K/uL Lymph # (Auto) 0.8 L (1.0-4.3) K/uL [place] # (Auto) 0.1 (0.0-0.8) K/uL Eos # (Auto) 0.0 (0.0-0.7) K/uL Baso # (Auto) 0.0 (0.0-0.2) K/uL PT (9.7-12.2) SECONDS INR APTT (21-34) SECONDS Puncture Site pCO2 (35-45) mm/Hg pO2 (80-100) mm/Hg HCO3 (21-28) mmol/L ABG pH (7.35-7.45) ABG Total CO2 (22-28) mmol/L ABG O2 Saturation (95-98) % ABG Base Excess (-2.0-3.0) mmol/L Sung Test ABG Potassium (3.6-5.2) mmol/L A-a O2 Difference mm/Hg Respiratory Index Glucose (65-105) mg/dl Lactate (0.7-2.1) mmol/L Liter Flow FiO2 % Sodium 142 (132-148) mmol/L Potassium 3.8 (3.6-5.2) mmol/L Chloride 107 (98-107) mmol/L Carbon Dioxide 24 (22-30) mmol/L Anion Gap 15 (10-20) BUN 8 (7-17) mg/dL Creatinine 0.6 L (0.7-1.2) mg/dL Est GFR ( Amer) > 60 Est GFR (Non-Af Amer) > 60 POC Glucose (mg/dL) (65-110) mg/dL Random Glucose 137 H (65-105) mg/dL Calcium 8.4 L (8.6-10.4) mg/dl Phosphorus 2.9 (2.5-4.5) mg/dL Magnesium 2.1 (1.6-2.3) mg/dL Total Bilirubin 0.3 (0.2-1.3) mg/dL AST 13 L (14-36) U/L ALT 23 (9-52) U/L Alkaline Phosphatase 65 (38-126) U/L Total Protein 6.7 (6.3-8.3) g/dL Albumin 3.6 (3.5-5.0) g/dL Globulin 3.1 (2.2-3.9) gm/dL Albumin/Globulin Ratio 1.1 (1.0-2.1) Amylase 66 (30-110) U/L Lipase 59 (23-300) U/L Arterial Blood Potassium (3.6-5.2) mmol/L Urine Color (YELLOW) Urine Clarity (Clear) Urine pH (5.0-8.0) Ur Specific [place] (1.003-1.030) Urine Protein (NEGATIVE) mg/dL Urine Glucose (UA) (Normal) mg/dL Urine Ketones (NEGATIVE) mg/dL Urine Blood (NEGATIVE) Urine Nitrate (NEGATIVE) Urine Bilirubin (NEGATIVE) Urine Urobilinogen (0.2-1.0) mg/dL Ur Leukocyte Esterase (Negative) [place]/uL Urine WBC (Auto) (0-5) /hpf Urine RBC (Auto) (0-3) /hpf Ur Squamous Epith Cells (0-5) /hpf Urine Bacteria (<OCC) Salicylates mg/dL 1 Urine Opiates Screen (NEGATIVE) Urine Methadone Screen (NEGATIVE) Acetaminophen < 10.0 L (10.0-30.0) ug/mL Ur Barbiturates Screen (NEGATIVE) Ur Phencyclidine Scrn (NEGATIVE) Ur Amphetamines Screen (NEGATIVE) U Benzodiazepines Scrn (NEGATIVE) U Oth Cocaine Metabols (NEGATIVE) U Cannabinoids Screen (NEGATIVE) Alcohol, Quantitative (0-10) mg/dl 07/15/18 07/15/18 07/15/18 Range/Units 21:03 21:03 21:03 WBC (4.8-10.8) K/uL RBC (3.80-5.20) Mil/uL Hgb (11.0-16.0) g/dL Hct (34.0-47.0) % MCV (81.0-99.0) fL MCH (27.0-31.0) pg MCHC (33.0-37.0) g/dL RDW (11.5-14.5) % Plt Count (130-400) K/uL MPV (7.2-11.7) fL Neut % (Auto) (50.0-75.0) % Lymph % (Auto) (20.0-40.0) % [place] % (Auto) (0.0-10.0) % Eos % (Auto) (0.0-4.0) % Baso % (Auto) (0.0-2.0) % Neut # (Auto) (1.8-7.0) K/uL Lymph # (Auto) (1.0-4.3) K/uL [place] # (Auto) (0.0-0.8) K/uL Eos # (Auto) (0.0-0.7) K/uL Baso # (Auto) (0.0-0.2) K/uL PT 11.8 (9.7-12.2) SECONDS INR 1.1 APTT 29 (21-34) SECONDS Puncture Site pCO2 (35-45) mm/Hg pO2 (80-100) mm/Hg HCO3 (21-28) mmol/L ABG pH (7.35-7.45) ABG Total CO2 (22-28) mmol/L ABG O2 Saturation (95-98) % ABG Base Excess (-2.0-3.0) mmol/L Sung Test ABG Potassium (3.6-5.2) mmol/L A-a O2 Difference mm/Hg Respiratory Index Glucose (65-105) mg/dl Lactate (0.7-2.1) mmol/L Liter Flow FiO2 % Sodium 141 (132-148) mmol/L Potassium 4.3 (3.6-5.2) mmol/L Chloride 106 (98-107) mmol/L Carbon Dioxide 24 (22-30) mmol/L Anion Gap 16 (10-20) BUN 8 (7-17) mg/dL Creatinine 0.5 L (0.7-1.2) mg/dL Est GFR ( Amer) > 60 Est GFR (Non-Af Amer) > 60 POC Glucose (mg/dL) (65-110) mg/dL Random Glucose 127 H (65-105) mg/dL Calcium 8.5 L (8.6-10.4) mg/dl Phosphorus (2.5-4.5) mg/dL Magnesium (1.6-2.3) mg/dL Total Bilirubin 0.2 (0.2-1.3) mg/dL AST 13 L D (14-36) U/L ALT 23 (9-52) U/L Alkaline Phosphatase < 20 L D (38-126) U/L Total Protein 6.4 (6.3-8.3) g/dL Albumin 3.5 (3.5-5.0) g/dL Globulin 2.9 (2.2-3.9) gm/dL Albumin/Globulin Ratio 1.2 (1.0-2.1) Amylase (30-110) U/L Lipase (23-300) U/L Arterial Blood Potassium (3.6-5.2) mmol/L Urine Color (YELLOW) Urine Clarity (Clear) Urine pH (5.0-8.0) Ur Specific [place] (1.003-1.030) Urine Protein (NEGATIVE) mg/dL Urine Glucose (UA) (Normal) mg/dL Urine Ketones (NEGATIVE) mg/dL Urine Blood (NEGATIVE) Urine Nitrate (NEGATIVE) Urine Bilirubin (NEGATIVE) Urine Urobilinogen (0.2-1.0) mg/dL Ur Leukocyte Esterase (Negative) [place]/uL Urine WBC (Auto) (0-5) /hpf Urine RBC (Auto) (0-3) /hpf Ur Squamous Epith Cells (0-5) /hpf Urine Bacteria (<OCC) Salicylates mg/dL 1 Urine Opiates Screen (NEGATIVE) Urine Methadone Screen (NEGATIVE) Acetaminophen 19.0 (10.0-30.0) ug/mL Ur Barbiturates Screen (NEGATIVE) Ur Phencyclidine Scrn (NEGATIVE) Ur Amphetamines Screen (NEGATIVE) U Benzodiazepines Scrn (NEGATIVE) U Oth Cocaine Metabols (NEGATIVE) U Cannabinoids Screen (NEGATIVE) Alcohol, Quantitative (0-10) mg/dl 07/15/18 07/15/18 07/15/18 Range/Units 17:58 17:22 17:18 WBC (4.8-10.8) K/uL RBC (3.80-5.20) Mil/uL Hgb (11.0-16.0) g/dL Hct (34.0-47.0) % MCV (81.0-99.0) fL MCH (27.0-31.0) pg MCHC (33.0-37.0) g/dL RDW (11.5-14.5) % Plt Count (130-400) K/uL MPV (7.2-11.7) fL Neut % (Auto) (50.0-75.0) % Lymph % (Auto) (20.0-40.0) % [place] % (Auto) (0.0-10.0) % Eos % (Auto) (0.0-4.0) % Baso % (Auto) (0.0-2.0) % Neut # (Auto) (1.8-7.0) K/uL Lymph # (Auto) (1.0-4.3) K/uL [place] # (Auto) (0.0-0.8) K/uL Eos # (Auto) (0.0-0.7) K/uL Baso # (Auto) (0.0-0.2) K/uL PT 11.5 (9.7-12.2) SECONDS INR 1.1 APTT 32 (21-34) SECONDS Puncture Site Rra pCO2 44 (35-45) mm/Hg pO2 177 H (80-100) mm/Hg HCO3 23.8 (21-28) mmol/L ABG pH 7.35 (7.35-7.45) ABG Total CO2 25.7 (22-28) mmol/L ABG O2 Saturation 99.2 H (95-98) % ABG Base Excess -1.5 (-2.0-3.0) mmol/L Sung Test Pos ABG Potassium 3.7 (3.6-5.2) mmol/L A-a O2 Difference 25.0 mm/Hg Respiratory Index 0.1 Glucose 108 H (65-105) mg/dl Lactate 0.6 L (0.7-2.1) mmol/L Liter Flow 4.0 FiO2 36.0 % Sodium 136.0 (132-148) mmol/L Potassium (3.6-5.2) mmol/L Chloride 108.0 H (98-107) mmol/L Carbon Dioxide (22-30) mmol/L Anion Gap (10-20) BUN (7-17) mg/dL Creatinine (0.7-1.2) mg/dL Est GFR ( Amer) Est GFR (Non-Af Amer) POC Glucose (mg/dL) (65-110) mg/dL Random Glucose (65-105) mg/dL Calcium (8.6-10.4) mg/dl Phosphorus (2.5-4.5) mg/dL Magnesium (1.6-2.3) mg/dL Total Bilirubin (0.2-1.3) mg/dL AST (14-36) U/L ALT (9-52) U/L Alkaline Phosphatase (38-126) U/L Total Protein (6.3-8.3) g/dL Albumin (3.5-5.0) g/dL Globulin (2.2-3.9) gm/dL Albumin/Globulin Ratio (1.0-2.1) Amylase (30-110) U/L Lipase (23-300) U/L Arterial Blood Potassium 3.7 (3.6-5.2) mmol/L Urine Color (YELLOW) Urine Clarity (Clear) Urine pH (5.0-8.0) Ur Specific [place] (1.003-1.030) Urine Protein (NEGATIVE) mg/dL Urine Glucose (UA) (Normal) mg/dL Urine Ketones (NEGATIVE) mg/dL Urine Blood (NEGATIVE) Urine Nitrate (NEGATIVE) Urine Bilirubin (NEGATIVE) Urine Urobilinogen (0.2-1.0) mg/dL Ur Leukocyte Esterase (Negative) [place]/uL Urine WBC (Auto) (0-5) /hpf Urine RBC (Auto) (0-3) /hpf Ur Squamous Epith Cells (0-5) /hpf Urine Bacteria (<OCC) Salicylates mg/dL 1 Urine Opiates Screen Positive H (NEGATIVE) Urine Methadone Screen Negative (NEGATIVE) Acetaminophen (10.0-30.0) ug/mL Ur Barbiturates Screen Negative (NEGATIVE) Ur Phencyclidine Scrn Negative (NEGATIVE) Ur Amphetamines Screen Negative (NEGATIVE) U Benzodiazepines Scrn Positive (NEGATIVE) U Oth Cocaine Metabols Negative (NEGATIVE) U Cannabinoids Screen Negative (NEGATIVE) Alcohol, Quantitative (0-10) mg/dl 07/15/18 07/15/18 07/15/18 Range/Units 17:18 16:55 16:55 WBC (4.8-10.8) K/uL RBC (3.80-5.20) Mil/uL Hgb (11.0-16.0) g/dL Hct (34.0-47.0) % MCV (81.0-99.0) fL MCH (27.0-31.0) pg MCHC (33.0-37.0) g/dL RDW (11.5-14.5) % Plt Count (130-400) K/uL MPV (7.2-11.7) fL Neut % (Auto) (50.0-75.0) % Lymph % (Auto) (20.0-40.0) % [place] % (Auto) (0.0-10.0) % Eos % (Auto) (0.0-4.0) % Baso % (Auto) (0.0-2.0) % Neut # (Auto) (1.8-7.0) K/uL Lymph # (Auto) (1.0-4.3) K/uL [place] # (Auto) (0.0-0.8) K/uL Eos # (Auto) (0.0-0.7) K/uL Baso # (Auto) (0.0-0.2) K/uL PT (9.7-12.2) SECONDS INR APTT (21-34) SECONDS Puncture Site pCO2 (35-45) mm/Hg pO2 (80-100) mm/Hg HCO3 (21-28) mmol/L ABG pH (7.35-7.45) ABG Total CO2 (22-28) mmol/L ABG O2 Saturation (95-98) % ABG Base Excess (-2.0-3.0) mmol/L Sung Test ABG Potassium (3.6-5.2) mmol/L A-a O2 Difference mm/Hg Respiratory Index Glucose (65-105) mg/dl Lactate (0.7-2.1) mmol/L Liter Flow FiO2 % Sodium 136 (132-148) mmol/L Potassium 4.0 (3.6-5.2) mmol/L Chloride 102 (98-107) mmol/L Carbon Dioxide 25 (22-30) mmol/L Anion Gap 13 (10-20) BUN 9 (7-17) mg/dL Creatinine 0.7 (0.7-1.2) mg/dL Est GFR ( Amer) > 60 Est GFR (Non-Af Amer) > 60 POC Glucose (mg/dL) (65-110) mg/dL Random Glucose 121 H (65-105) mg/dL Calcium 9.2 (8.6-10.4) mg/dl Phosphorus (2.5-4.5) mg/dL Magnesium (1.6-2.3) mg/dL Total Bilirubin 0.4 (0.2-1.3) mg/dL AST 20 (14-36) U/L ALT 26 (9-52) U/L Alkaline Phosphatase 73 (38-126) U/L Total Protein 7.0 (6.3-8.3) g/dL Albumin 3.9 (3.5-5.0) g/dL Globulin 3.2 (2.2-3.9) gm/dL Albumin/Globulin Ratio 1.2 (1.0-2.1) Amylase (30-110) U/L Lipase (23-300) U/L Arterial Blood Potassium (3.6-5.2) mmol/L Urine Color Yellow (YELLOW) Urine Clarity Clear (Clear) Urine pH 6.0 (5.0-8.0) Ur Specific [place] 1.016 (1.003-1.030) Urine Protein Negative (NEGATIVE) mg/dL Urine Glucose (UA) Normal (Normal) mg/dL Urine Ketones Negative (NEGATIVE) mg/dL Urine Blood Negative (NEGATIVE) Urine Nitrate Negative (NEGATIVE) Urine Bilirubin Negative (NEGATIVE) Urine Urobilinogen Normal (0.2-1.0) mg/dL Ur Leukocyte Esterase Neg (Negative) [place]/uL Urine WBC (Auto) 1 (0-5) /hpf Urine RBC (Auto) < 1 (0-3) /hpf Ur Squamous Epith Cells < 1 (0-5) /hpf Urine Bacteria Rare (<OCC) Salicylates < 1.0 mg/dL 1 Urine Opiates Screen (NEGATIVE) Urine Methadone Screen (NEGATIVE) Acetaminophen 55.0 H (10.0-30.0) ug/mL Ur Barbiturates Screen (NEGATIVE) Ur Phencyclidine Scrn (NEGATIVE) Ur Amphetamines Screen (NEGATIVE) U Benzodiazepines Scrn (NEGATIVE) U Oth Cocaine Metabols (NEGATIVE) U Cannabinoids Screen (NEGATIVE) Alcohol, Quantitative < 10 (0-10) mg/dl 07/15/18 07/15/18 Range/Units 16:55 16:34 WBC 8.8 D (4.8-10.8) K/uL RBC 4.29 (3.80-5.20) Mil/uL Hgb 13.2 (11.0-16.0) g/dL Hct 40.0 (34.0-47.0) % MCV 93.4 (81.0-99.0) fL MCH 30.9 (27.0-31.0) pg MCHC 33.1 (33.0-37.0) g/dL RDW 13.6 (11.5-14.5) % Plt Count 248 (130-400) K/uL MPV 7.6 (7.2-11.7) fL Neut % (Auto) 73.3 (50.0-75.0) % Lymph % (Auto) 19.0 L (20.0-40.0) % [place] % (Auto) 6.7 (0.0-10.0) % Eos % (Auto) 0.4 (0.0-4.0) % Baso % (Auto) 0.6 (0.0-2.0) % Neut # (Auto) 6.5 (1.8-7.0) K/uL Lymph # (Auto) 1.7 (1.0-4.3) K/uL [place] # (Auto) 0.6 (0.0-0.8) K/uL Eos # (Auto) 0.0 (0.0-0.7) K/uL Baso # (Auto) 0.1 (0.0-0.2) K/uL PT (9.7-12.2) SECONDS INR APTT (21-34) SECONDS Puncture Site pCO2 (35-45) mm/Hg pO2 (80-100) mm/Hg HCO3 (21-28) mmol/L ABG pH (7.35-7.45) ABG Total CO2 (22-28) mmol/L ABG O2 Saturation (95-98) % ABG Base Excess (-2.0-3.0) mmol/L Sung Test ABG Potassium (3.6-5.2) mmol/L A-a O2 Difference mm/Hg Respiratory Index Glucose (65-105) mg/dl Lactate (0.7-2.1) mmol/L Liter Flow FiO2 % Sodium (132-148) mmol/L Potassium (3.6-5.2) mmol/L Chloride (98-107) mmol/L Carbon Dioxide (22-30) mmol/L Anion Gap (10-20) BUN (7-17) mg/dL Creatinine (0.7-1.2) mg/dL Est GFR ( Amer) Est GFR (Non-Af Amer) POC Glucose (mg/dL) 122 H (65-110) mg/dL Random Glucose (65-105) mg/dL Calcium (8.6-10.4) mg/dl Phosphorus (2.5-4.5) mg/dL Magnesium (1.6-2.3) mg/dL Total Bilirubin (0.2-1.3) mg/dL AST (14-36) U/L ALT (9-52) U/L Alkaline Phosphatase (38-126) U/L Total Protein (6.3-8.3) g/dL Albumin (3.5-5.0) g/dL Globulin (2.2-3.9) gm/dL Albumin/Globulin Ratio (1.0-2.1) Amylase (30-110) U/L Lipase (23-300) U/L Arterial Blood Potassium (3.6-5.2) mmol/L Urine Color (YELLOW) Urine Clarity (Clear) Urine pH (5.0-8.0) Ur Specific [place] (1.003-1.030) Urine Protein (NEGATIVE) mg/dL Urine Glucose (UA) (Normal) mg/dL Urine Ketones (NEGATIVE) mg/dL Urine Blood (NEGATIVE) Urine Nitrate (NEGATIVE) Urine Bilirubin (NEGATIVE) Urine Urobilinogen (0.2-1.0) mg/dL Ur Leukocyte Esterase (Negative) [place]/uL Urine WBC (Auto) (0-5) /hpf Urine RBC (Auto) (0-3) /hpf Ur Squamous Epith Cells (0-5) /hpf Urine Bacteria (<OCC) Salicylates mg/dL 1 Urine Opiates Screen (NEGATIVE) Urine Methadone Screen (NEGATIVE) Acetaminophen (10.0-30.0) ug/mL Ur Barbiturates Screen (NEGATIVE) Ur Phencyclidine Scrn (NEGATIVE) Ur Amphetamines Screen (NEGATIVE) U Benzodiazepines Scrn (NEGATIVE) U Oth Cocaine Metabols (NEGATIVE) U Cannabinoids Screen (NEGATIVE) Alcohol, Quantitative (0-10) mg/dl Laboratory Results - last 24 hr 07/15/18 07/15/18 07/15/18 16:34 16:55 16:55 WBC 8.8 D RBC 4.29 Hgb 13.2 Hct 40.0 MCV 93.4 MCH 30.9 MCHC 33.1 RDW 13.6 Plt Count 248 MPV 7.6 Neut % (Auto) 73.3 Lymph % (Auto) 19.0 L [place] % (Auto) 6.7 Eos % (Auto) 0.4 Baso % (Auto) 0.6 Neut # (Auto) 6.5 Lymph # (Auto) 1.7 [place] # (Auto) 0.6 Eos # (Auto) 0.0 Baso # (Auto) 0.1 PT INR APTT Puncture Site pCO2 pO2 HCO3 ABG pH ABG Total CO2 ABG O2 Saturation ABG Base Excess Sung Test ABG Potassium A-a O2 Difference Respiratory Index Glucose Lactate Liter Flow FiO2 Sodium 136 Potassium 4.0 Chloride 102 Carbon Dioxide 25 Anion Gap 13 BUN 9 Creatinine 0.7 Est GFR ( Amer) > 60 Est GFR (Non-Af Amer) > 60 POC Glucose (mg/dL) 122 H Random Glucose 121 H Calcium 9.2 Phosphorus Magnesium Total Bilirubin 0.4 AST 20 ALT 26 Alkaline Phosphatase 73 Total Protein 7.0 Albumin 3.9 Globulin 3.2 Albumin/Globulin Ratio 1.2 Amylase Lipase Arterial Blood Potassium Urine Color Urine Clarity Urine pH Ur Specific [place] Urine Protein Urine Glucose (UA) Urine Ketones Urine Blood Urine Nitrate Urine Bilirubin Urine Urobilinogen Ur Leukocyte Esterase Urine WBC (Auto) Urine RBC (Auto) Ur Squamous Epith Cells Urine Bacteria Salicylates Urine Opiates Screen Urine Methadone Screen Acetaminophen Ur Barbiturates Screen Ur Phencyclidine Scrn Ur Amphetamines Screen U Benzodiazepines Scrn U Oth Cocaine Metabols U Cannabinoids Screen Alcohol, Quantitative < 10 07/15/18 07/15/18 07/15/18 16:55 17:18 17:18 WBC RBC Hgb Hct MCV MCH MCHC RDW Plt Count MPV Neut % (Auto) Lymph % (Auto) [place] % (Auto) Eos % (Auto) Baso % (Auto) Neut # (Auto) Lymph # (Auto) [place] # (Auto) Eos # (Auto) Baso # (Auto) PT INR APTT Puncture Site pCO2 pO2 HCO3 ABG pH ABG Total CO2 ABG O2 Saturation ABG Base Excess Sung Test ABG Potassium A-a O2 Difference Respiratory Index Glucose Lactate Liter Flow FiO2 Sodium Potassium Chloride Carbon Dioxide Anion Gap BUN Creatinine Est GFR ( Amer) Est GFR (Non-Af Amer) POC Glucose (mg/dL) Random Glucose Calcium Phosphorus Magnesium Total Bilirubin AST ALT Alkaline Phosphatase Total Protein Albumin Globulin Albumin/Globulin Ratio Amylase Lipase Arterial Blood Potassium Urine Color Yellow Urine Clarity Clear Urine pH 6.0 Ur Specific [place] 1.016 Urine Protein Negative Urine Glucose (UA) Normal Urine Ketones Negative Urine Blood Negative Urine Nitrate Negative Urine Bilirubin Negative Urine Urobilinogen Normal Ur Leukocyte Esterase Neg Urine WBC (Auto) 1 Urine RBC (Auto) < 1 Ur Squamous Epith Cells < 1 Urine Bacteria Rare Salicylates < 1.0 Urine Opiates Screen Positive H Urine Methadone Screen Negative Acetaminophen 55.0 H Ur Barbiturates Screen Negative Ur Phencyclidine Scrn Negative Ur Amphetamines Screen Negative U Benzodiazepines Scrn Positive U Oth Cocaine Metabols Negative U Cannabinoids Screen Negative Alcohol, Quantitative 07/15/18 07/15/18 07/15/18 17:22 17:58 21:03 WBC RBC Hgb Hct MCV MCH MCHC RDW Plt Count MPV Neut % (Auto) Lymph % (Auto) [place] % (Auto) Eos % (Auto) Baso % (Auto) Neut # (Auto) Lymph # (Auto) [place] # (Auto) Eos # (Auto) Baso # (Auto) PT 11.5 11.8 INR 1.1 1.1 APTT 32 29 Puncture Site Rra pCO2 44 pO2 177 H HCO3 23.8 ABG pH 7.35 ABG Total CO2 25.7 ABG O2 Saturation 99.2 H ABG Base Excess -1.5 Sung Test Pos ABG Potassium 3.7 A-a O2 Difference 25.0 Respiratory Index 0.1 Glucose 108 H Lactate 0.6 L Liter Flow 4.0 FiO2 36.0 Sodium 136.0 Potassium Chloride 108.0 H Carbon Dioxide Anion Gap BUN Creatinine Est GFR ( Amer) Est GFR (Non-Af Amer) POC Glucose (mg/dL) Random Glucose Calcium Phosphorus Magnesium Total Bilirubin AST ALT Alkaline Phosphatase Total Protein Albumin Globulin Albumin/Globulin Ratio Amylase Lipase Arterial Blood Potassium 3.7 Urine Color Urine Clarity Urine pH Ur Specific [place] Urine Protein Urine Glucose (UA) Urine Ketones Urine Blood Urine Nitrate Urine Bilirubin Urine Urobilinogen Ur Leukocyte Esterase Urine WBC (Auto) Urine RBC (Auto) Ur Squamous Epith Cells Urine Bacteria Salicylates Urine Opiates Screen Urine Methadone Screen Acetaminophen Ur Barbiturates Screen Ur Phencyclidine Scrn Ur Amphetamines Screen U Benzodiazepines Scrn U Oth Cocaine Metabols U Cannabinoids Screen Alcohol, Quantitative 07/15/18 07/15/18 07/16/18 21:03 21:03 05:59 WBC 7.2 RBC 4.41 Hgb 13.9 Hct 41.1 MCV 93.2 MCH 31.5 H MCHC 33.9 RDW 13.6 Plt Count 245 MPV 8.4 Neut % (Auto) 87.8 H Lymph % (Auto) 10.8 L [place] % (Auto) 1.2 Eos % (Auto) 0.0 Baso % (Auto) 0.2 Neut # (Auto) 6.4 Lymph # (Auto) 0.8 L [place] # (Auto) 0.1 Eos # (Auto) 0.0 Baso # (Auto) 0.0 PT INR APTT Puncture Site pCO2 pO2 HCO3 ABG pH ABG Total CO2 ABG O2 Saturation ABG Base Excess Sung Test ABG Potassium A-a O2 Difference Respiratory Index Glucose Lactate Liter Flow FiO2 Sodium 141 Potassium 4.3 Chloride 106 Carbon Dioxide 24 Anion Gap 16 BUN 8 Creatinine 0.5 L Est GFR ( Amer) > 60 Est GFR (Non-Af Amer) > 60 POC Glucose (mg/dL) Random Glucose 127 H Calcium 8.5 L Phosphorus Magnesium Total Bilirubin 0.2 AST 13 L D ALT 23 Alkaline Phosphatase < 20 L D Total Protein 6.4 Albumin 3.5 Globulin 2.9 Albumin/Globulin Ratio 1.2 Amylase Lipase Arterial Blood Potassium Urine Color Urine Clarity Urine pH Ur Specific [place] Urine Protein Urine Glucose (UA) Urine Ketones Urine Blood Urine Nitrate Urine Bilirubin Urine Urobilinogen Ur Leukocyte Esterase Urine WBC (Auto) Urine RBC (Auto) Ur Squamous Epith Cells Urine Bacteria Salicylates Urine Opiates Screen Urine Methadone Screen Acetaminophen 19.0 Ur Barbiturates Screen Ur Phencyclidine Scrn Ur Amphetamines Screen U Benzodiazepines Scrn U Oth Cocaine Metabols U Cannabinoids Screen Alcohol, Quantitative 07/16/18 07/16/18 05:59 05:59 WBC RBC Hgb Hct MCV MCH MCHC RDW Plt Count MPV Neut % (Auto) Lymph % (Auto) [place] % (Auto) Eos % (Auto) Baso % (Auto) Neut # (Auto) Lymph # (Auto) [place] # (Auto) Eos # (Auto) Baso # (Auto) PT INR APTT Puncture Site pCO2 pO2 HCO3 ABG pH ABG Total CO2 ABG O2 Saturation ABG Base Excess Sung Test ABG Potassium A-a O2 Difference Respiratory Index Glucose Lactate Liter Flow FiO2 Sodium 142 Potassium 3.8 Chloride 107 Carbon Dioxide 24 Anion Gap 15 BUN 8 Creatinine 0.6 L Est GFR ( Amer) > 60 Est GFR (Non-Af Amer) > 60 POC Glucose (mg/dL) Random Glucose 137 H Calcium 8.4 L Phosphorus 2.9 Magnesium 2.1 Total Bilirubin 0.3 AST 13 L ALT 23 Alkaline Phosphatase 65 Total Protein 6.7 Albumin 3.6 Globulin 3.1 Albumin/Globulin Ratio 1.1 Amylase 66 Lipase 59 Arterial Blood Potassium Urine Color Urine Clarity Urine pH Ur Specific [place] Urine Protein Urine Glucose (UA) Urine Ketones Urine Blood Urine Nitrate Urine Bilirubin Urine Urobilinogen Ur Leukocyte Esterase Urine WBC (Auto) Urine RBC (Auto) Ur Squamous Epith Cells Urine Bacteria Salicylates Urine Opiates Screen Urine Methadone Screen Acetaminophen < 10.0 L Ur Barbiturates Screen Ur Phencyclidine Scrn Ur Amphetamines Screen U Benzodiazepines Scrn U Oth Cocaine Metabols U Cannabinoids Screen Alcohol, Quantitative EKG/Cardiology Studies: Cardiology / EKG Studies 07/15/18 16:42 ELECTROCARDIOGRAM Stat Comment: Mode Of Transportation: BED Reason For Exam: Overdose 07/15/18 23:35 ELECTROCARDIOGRAM Routine Comment: Mode Of Transportation: PORTABLE Reason For Exam: follow up recheck QT interval 07/16/18 08:00 EKG [ELECTROCARDIOGRAM] Routine Comment: Mode Of Transportation: PORTABLE Reason For Exam: follow up recheck QT interval Fingerstick Blood Sugar Results: 122 Review of Systems - Review of Systems All systems: reviewed and no additional remarkable complaints except (HPI) Critical Care Progress Note - Nutrition Nutrition: Nutrition Category Date Time Status Heart Healthy Diet [DIET] Diets 07/16/18 Breakfast Active Assessment/Plan - Assessment and Plan (Free Text) Assessment: 62-year-old female with a history of depression, anxiety, hypertension, and UC presents with drug overdose including Tylenol, opiate, and Xanax. Neuro: - AAO x 3 -Denies any SI/HI -Cont 1:1 - F/u psych consult and recs Pulm: - maintain SPO2 > 92% - Nasal cannula as needed CV: - Hemodynamically stable - Maintain MAP >65 - Cont IVF NS @ 100 GI: - Heart healthy diet - patient received NAC x 1 loading dose - Started second dose of NAC now - Poison control was contacted, will follow up with their recs - Acetominophen level was 55 on admission; currently <10 - Monitor LFTs Renal: - Monitor I and O - Replete electrolytes as needed Endo: - Maintain euglycemic ID: - Afebrile, wbc 10.3 -Cont to monitor Heme: - Monitor H/H - Currently stable GI/DVT ppx Case and plan was reviewed and discussed in detail with Dr Keys. <Héctor Keys S - Last Filed: 07/16/18 18:16> CCU Objective - Vital Signs / Intake & Output Vital Signs (Last 4 hours): Vital Signs Temp Pulse Resp BP Pulse Ox 07/16/18 16:46 70 16 132/63 74 L 07/16/18 16:40 71 14 94 L 07/16/18 16:30 72 21 99 07/16/18 16:20 72 14 100 07/16/18 16:10 70 12 99 07/16/18 16:00 97.1 F L 66 11 L 99 07/16/18 15:50 64 10 L 100 07/16/18 15:40 66 12 100 07/16/18 15:30 71 13 99 07/16/18 15:20 68 13 100 07/16/18 15:10 72 11 L 99 07/16/18 15:00 70 8 L 100 07/16/18 14:50 67 11 L 100 07/16/18 14:45 66 9 L 129/71 100 07/16/18 14:40 66 15 100 07/16/18 14:30 65 13 98 07/16/18 14:20 70 13 100 Intake and Output (Last 8hrs): Intake & Output 07/16/18 07/16/18 07/16/18 06:59 14:59 22:59 Intake Total 800 2410 585 Output Total 700 500 300 Balance 100 1910 285 Weight 165 lb Intake: Intake, IV Amount 800 1410 325 Left Antecubital 800 900 200 Left Distal Port 500 125 Antecubital Right Hand 10 Oral 0 1000 260 Output: Urine 700 500 300 Urine, Voided 700 500 300 Oral Regurgitation 0 0 Other: # Voids Urine, Voided 1 0 # Bowel Movements 0 0 - Medications Active Medications: Active Medications Generic Name Dose Route Start Last Admin Trade Name Freq PRN Reason Stop Dose Admin Heparin Sodium (Porcine) 5,000 units 07/16/18 06:00 07/16/18 14:03 Heparin SC 5,000 units Q8 [facility] Administration Sodium Chloride 1,000 mls @ 100 mls/hr 07/15/18 19:00 07/16/18 15:03 Sodium Chloride 0.9% IV 100 mls/hr .Q10H [facility] Administration Acetylcysteine 7,480 mg/ 1,037.4 mls @ 62.5 mls/hr 07/16/18 16:19 07/16/18 16 :48 Dextrose IVPB 07/17/18 08:54 62.5 mls/hr ONCE ONE Administration Methylprednisolone 40 mg 07/16/18 02:15 07/16/18 14:03 Solu-Medrol IVP 40 mg Q6H [facility] Administration Pantoprazole Sodium 40 mg 07/16/18 10:00 07/16/18 10:26 Protonix Inj IVP 40 mg DAILY [facility] Administration - Patient Studies Lab Studies: Lab Studies 07/16/18 07/16/18 07/16/18 Range/Units 05:59 05:59 05:59 WBC 7.2 (4.8-10.8) K/uL RBC 4.41 (3.80-5.20) Mil/uL Hgb 13.9 (11.0-16.0) g/dL Hct 41.1 (34.0-47.0) % MCV 93.2 (81.0-99.0) fL MCH 31.5 H (27.0-31.0) pg MCHC 33.9 (33.0-37.0) g/dL RDW 13.6 (11.5-14.5) % Plt Count 245 (130-400) K/uL MPV 8.4 (7.2-11.7) fL Neut % (Auto) 87.8 H (50.0-75.0) % Lymph % (Auto) 10.8 L (20.0-40.0) % [place] % (Auto) 1.2 (0.0-10.0) % Eos % (Auto) 0.0 (0.0-4.0) % Baso % (Auto) 0.2 (0.0-2.0) % Neut # (Auto) 6.4 (1.8-7.0) K/uL Lymph # (Auto) 0.8 L (1.0-4.3) K/uL [place] # (Auto) 0.1 (0.0-0.8) K/uL Eos # (Auto) 0.0 (0.0-0.7) K/uL Baso # (Auto) 0.0 (0.0-0.2) K/uL PT (9.7-12.2) SECONDS INR APTT (21-34) SECONDS Sodium 142 (132-148) mmol/L Potassium 3.8 (3.6-5.2) mmol/L Chloride 107 (98-107) mmol/L Carbon Dioxide 24 (22-30) mmol/L Anion Gap 15 (10-20) BUN 8 (7-17) mg/dL Creatinine 0.6 L (0.7-1.2) mg/dL Est GFR ( Amer) > 60 Est GFR (Non-Af Amer) > 60 Random Glucose 137 H (65-105) mg/dL Calcium 8.4 L (8.6-10.4) mg/dl Phosphorus 2.9 (2.5-4.5) mg/dL Magnesium 2.1 (1.6-2.3) mg/dL Total Bilirubin 0.3 (0.2-1.3) mg/dL AST 13 L (14-36) U/L ALT 23 (9-52) U/L Alkaline Phosphatase 65 (38-126) U/L Total Protein 6.7 (6.3-8.3) g/dL Albumin 3.6 (3.5-5.0) g/dL Globulin 3.1 (2.2-3.9) gm/dL Albumin/Globulin Ratio 1.1 (1.0-2.1) Amylase 66 (30-110) U/L Lipase 59 (23-300) U/L Acetaminophen < 10.0 L (10.0-30.0) ug/mL 07/15/18 07/15/18 07/15/18 Range/Units 21:03 21:03 21:03 WBC (4.8-10.8) K/uL RBC (3.80-5.20) Mil/uL Hgb (11.0-16.0) g/dL Hct (34.0-47.0) % MCV (81.0-99.0) fL MCH (27.0-31.0) pg MCHC (33.0-37.0) g/dL RDW (11.5-14.5) % Plt Count (130-400) K/uL MPV (7.2-11.7) fL Neut % (Auto) (50.0-75.0) % Lymph % (Auto) (20.0-40.0) % [place] % (Auto) (0.0-10.0) % Eos % (Auto) (0.0-4.0) % Baso % (Auto) (0.0-2.0) % Neut # (Auto) (1.8-7.0) K/uL Lymph # (Auto) (1.0-4.3) K/uL [place] # (Auto) (0.0-0.8) K/uL Eos # (Auto) (0.0-0.7) K/uL Baso # (Auto) (0.0-0.2) K/uL PT 11.8 (9.7-12.2) SECONDS INR 1.1 APTT 29 (21-34) SECONDS Sodium 141 (132-148) mmol/L Potassium 4.3 (3.6-5.2) mmol/L Chloride 106 (98-107) mmol/L Carbon Dioxide 24 (22-30) mmol/L Anion Gap 16 (10-20) BUN 8 (7-17) mg/dL Creatinine 0.5 L (0.7-1.2) mg/dL Est GFR ( Amer) > 60 Est GFR (Non-Af Amer) > 60 Random Glucose 127 H (65-105) mg/dL Calcium 8.5 L (8.6-10.4) mg/dl Phosphorus (2.5-4.5) mg/dL Magnesium (1.6-2.3) mg/dL Total Bilirubin 0.2 (0.2-1.3) mg/dL AST 13 L D (14-36) U/L ALT 23 (9-52) U/L Alkaline Phosphatase < 20 L D (38-126) U/L Total Protein 6.4 (6.3-8.3) g/dL Albumin 3.5 (3.5-5.0) g/dL Globulin 2.9 (2.2-3.9) gm/dL Albumin/Globulin Ratio 1.2 (1.0-2.1) Amylase (30-110) U/L Lipase (23-300) U/L Acetaminophen 19.0 (10.0-30.0) ug/mL Laboratory Results - last 24 hr 07/15/18 07/15/18 07/15/18 21:03 21:03 21:03 WBC RBC Hgb Hct MCV MCH MCHC RDW Plt Count MPV Neut % (Auto) Lymph % (Auto) [place] % (Auto) Eos % (Auto) Baso % (Auto) Neut # (Auto) Lymph # (Auto) [place] # (Auto) Eos # (Auto) Baso # (Auto) PT 11.8 INR 1.1 APTT 29 Sodium 141 Potassium 4.3 Chloride 106 Carbon Dioxide 24 Anion Gap 16 BUN 8 Creatinine 0.5 L Est GFR ( Amer) > 60 Est GFR (Non-Af Amer) > 60 Random Glucose 127 H Calcium 8.5 L Phosphorus Magnesium Total Bilirubin 0.2 AST 13 L D ALT 23 Alkaline Phosphatase < 20 L D Total Protein 6.4 Albumin 3.5 Globulin 2.9 Albumin/Globulin Ratio 1.2 Amylase Lipase Acetaminophen 19.0 07/16/18 07/16/18 07/16/18 05:59 05:59 05:59 WBC 7.2 RBC 4.41 Hgb 13.9 Hct 41.1 MCV 93.2 MCH 31.5 H MCHC 33.9 RDW 13.6 Plt Count 245 MPV 8.4 Neut % (Auto) 87.8 H Lymph % (Auto) 10.8 L [place] % (Auto) 1.2 Eos % (Auto) 0.0 Baso % (Auto) 0.2 Neut # (Auto) 6.4 Lymph # (Auto) 0.8 L [place] # (Auto) 0.1 Eos # (Auto) 0.0 Baso # (Auto) 0.0 PT INR APTT Sodium 142 Potassium 3.8 Chloride 107 Carbon Dioxide 24 Anion Gap 15 BUN 8 Creatinine 0.6 L Est GFR ( Amer) > 60 Est GFR (Non-Af Amer) > 60 Random Glucose 137 H Calcium 8.4 L Phosphorus 2.9 Magnesium 2.1 Total Bilirubin 0.3 AST 13 L ALT 23 Alkaline Phosphatase 65 Total Protein 6.7 Albumin 3.6 Globulin 3.1 Albumin/Globulin Ratio 1.1 Amylase 66 Lipase 59 Acetaminophen < 10.0 L EKG/Cardiology Studies: Cardiology / EKG Studies 07/15/18 23:35 ELECTROCARDIOGRAM Routine Comment: Mode Of Transportation: PORTABLE Reason For Exam: follow up recheck QT interval 07/16/18 08:00 EKG [ELECTROCARDIOGRAM] Routine Comment: Mode Of Transportation: PORTABLE Reason For Exam: follow up recheck QT interval Critical Care Progress Note - Nutrition Nutrition: Nutrition Category Date Time Status Heart Healthy Diet [DIET] Diets 07/16/18 Breakfast Active Attending/Attestation - Attestation I have personally seen and examined this patient.: Yes I have fully participated in the care of the patient.: Yes I have reviewed all pertinent clinical information: Yes Notes (Text): 07/16/18 18:15 patient seen and examined in the intensive care unit. Follow-up poison control recommendations Patient getting IV acetylcysteine Seen by psychiatry Stable for transfer to floor
--- NOTE | 2018-07-16 19:29 | CP.PCM.PN ---
Subjective - Date & Time of Evaluation Date of Evaluation: 07/16/18 Time of Evaluation: 14:45 - Subjective Subjective: clinically same Objective - Vital Signs/Intake and Output Vital Signs (last 24 hours): Temp Pulse Resp BP Pulse Ox 97.1 F L 70 16 132/63 74 L 07/16/18 16:00 07/16/18 16:46 07/16/18 16:46 07/16/18 16:46 07/16/18 16:46 Intake and Output: 07/16/18 07/17/18 18:59 06:59 Intake Total 2995 Output Total 800 Balance 2195 - Medications Medications: Current Medications Heparin Sodium (Porcine) (Heparin) 5,000 units SC Q8 [facility] Last Admin: 07/16/18 14:03 Dose: 5,000 units Sodium Chloride (Sodium Chloride 0.9%) 1,000 mls @ 100 mls/hr IV .Q10H [facility] Last Admin: 07/16/18 15:03 Dose: 100 mls/hr Acetylcysteine 7,480 mg/ (Dextrose) 1,037.4 mls @ 62.5 mls/hr IVPB ONCE ONE Stop: 07/17/18 08:54 Last Admin: 07/16/18 16:48 Dose: 62.5 mls/hr Methylprednisolone (Solu-Medrol) 40 mg IVP Q6H [facility] Last Admin: 07/16/18 14:03 Dose: 40 mg Pantoprazole Sodium (Protonix Inj) 40 mg IVP DAILY [facility] Last Admin: 07/16/18 10:26 Dose: 40 mg - Labs Labs: 07/16/18 05:59 07/16/18 05:59 PT 11.8 SECONDS (9.7-12.2) 07/15/18 21:03 INR 1.1 07/15/18 21:03 APTT 29 SECONDS (21-34) 07/15/18 21:03 - Constitutional Appears: Well - Head Exam Head Exam: ATRAUMATIC, NORMAL INSPECTION, NORMOCEPHALIC - Eye Exam Eye Exam: EOMI, Normal appearance, PERRL Pupil Exam: NORMAL ACCOMODATION, PERRL - ENT Exam ENT Exam: Mucous Membranes Moist, Normal Exam - Neck Exam Neck Exam: Full ROM, Normal Inspection. absent: Lymphadenopathy - Respiratory Exam Respiratory Exam: Decreased Breath Sounds - Cardiovascular Exam Cardiovascular Exam: REGULAR RHYTHM, +S1, +S2 - GI/Abdominal Exam GI & Abdominal Exam: Soft, Diminished Bowel Sounds - Rectal Exam Rectal Exam: Deferred Assessment and Plan - Assessment and Plan (Free Text) Plan: 62-year-old female with a history of depression, anxiety, hypertension, and UC presents with drug overdose including Tylenol, opiate, and Xanax. Neuro: - AAO x 3 ,slightly lethargic - F/u psych consult and recs Pulm: - Nasal cannula as needed CV: - Hemodynamically stable - Cont IVF GI: - Heart healthy diet - patient received NAC x 1 loading dose - second dose of NAC today - Acetominophen level was 55 on admission; currently <10 - Monitor LFTs Renal: - Replete electrolytes as needed ID: - Afebrile, wbc 10.3 -Cont to monitor Heme: - Currently stable GI/DVT ppx
[2018-07-17] MEDS: Sodium Chloride 0.9% 1,000 ML IV SCH ×3 (01:51→21:38)
[2018-07-17] MEDS: MethylPREDNISolone 40 mg Vial IVP SCH ×4 (02:15→20:15)
[2018-07-17 06:47] LABS: BASO # 0.1 K/uL (0.0-0.2); BASO % 0.8 % (0.0-2.0); LYMPH # 1.2 K/uL (1.0-4.3); LYMPH % 9.6 % (20.0-40.0); MEAN CELL VOLUME 92.5 fL (81.0-99.0); MEAN CORPUSCULAR HEMOGLOBIN 30.8 pg (27.0-31.0); MEAN CORPUSCULAR HGB CONC 33.4 g/dL (33.0-37.0); MEAN PLATELET VOLUME 8.4 fL (7.2-11.7); MONO # 0.6 K/uL (0.0-0.8); MONO % 4.9 % (0.0-10.0); NEUT # 10.5 K/uL (1.8-7.0); NEUT % 84.7 % (50.0-75.0); PLATELET COUNT 238 K/uL (130-400); RED CELL DISTRIBUTION WIDTH 13.2 % (11.5-14.5); WHITE BLOOD COUNT 12.4 K/uL (4.8-10.8)
[2018-07-17 07:06] LABS: ALB/GLOB RATIO 1.2 (1.0-2.1); ALBUMIN 3.3 g/dL (3.5-5.0); ALT/SGPT 23 U/L (9-52); AST/SGOT 9 U/L (14-36); BLOOD UREA NITROGEN 7 mg/dL (7-17); CALCIUM 8.4 mg/dl (8.6-10.4); GFR NON-AFRICAN AMERICAN > 60
[2018-07-17] MEDS ORDERED: Potassium & Sodium Phosphate PO ONE (08:15)
[2018-07-17] MEDS ORDERED: Potassium Chloride 20 mEq/15 ml LIQ UD PO ONE (08:30)
[2018-07-17 09:09] LABS: LYMPHOCYTE 9 % (20-40); MONOCYTE 8 % (0-10); NEUTROPHIL 82 % (50-75); PLATELET ESTIMATE NORMAL (NORMAL); REACTIVE LYMPHOCYTES 1 % (0-0); TOTAL CELLS COUNTED 100
--- NOTE | 2018-07-17 09:16 | CARD ---
APPROVED REPORT Date of service: 07/15/2018 EKG Measurement Heart [id number] PA [id number] <Conclusion> Normal sinus rhythm Normal ECG
--- NOTE | 2018-07-17 11:57 | PCM.PYCHPN ---
Psychiatric Progress Note - Psychiatric Progress Note Patient seen today, length of contact: 16 Patient Chief Complaint: "It was a mistake to hurt myself." Medical Problems: PGY-1 Psychiatric Progress Note for Dr. Martin. Patient was seen, chart reviewed and case discussed with staff. Patient states she feels less depressed than yesterday and believes that hurting herself was a mistake. She does not have suicidal ideation at this time, as well as homicidal ideation and auditory and visual hallucinations. She is complaining of poor sleep and chronic colitis pain. Now that patient is more awake, she is able to state that she took Xanax and Percocet to overdose, she did not take Lexapro. Supportive therapy and psychoeducation given. Medication Change: Yes (add lexapro, clonazepam and trazedone) Medical Record Reviewed: Yes Mental Status Examination - Cognitive Function Orientation: Person, Place, Situation, Time Memory: Intact Attention: WNL Concentration: WNL Association: WNL Fund of Knowledge: WNL - Mood Mood: Depressed, Anxious - Affect Affect: Depressed - Speech Speech: Appropriate - Formal Thought Process Formal Thought Process: No Impairment - Suicidal Ideation Suicidal Ideation: No - Homicidal Ideation Homicidal Ideation: No Goal/Treatment Plan - Goal/Treatment Plan Progress Toward Problem(s) and Goals/Treatment Plan: Major Depressive Disorder- single episode, severe without psychosis Generalized anxiety disorder Start Lexapro 5mg PO daily Clonazepam 0.5mg PO HS Trazodone 50mg PO HS Discontinue 1:1 Supportive therapy and psychoeducation given - Smoking Cessation Smoking Cessation Initiated: No
[2018-07-17] MEDS ORDERED: DiphenhydrAMINE 50 mg/ml Inj IVP ONE (14:30)
[2018-07-17 16:06] VITALS: RESP 20
--- NOTE | 2018-07-17 17:47 | CARD ---
APPROVED REPORT Date of service: 07/16/2018 EKG Measurement Heart [id number] MI [id number] <Conclusion> Normal sinus rhythm T wave abnormality, consider anterior ischemia Abnormal ECG
[2018-07-17] MEDS ORDERED: Potassium Chloride 20 mEq ER Tab PO STA (19:21)
--- NOTE | 2018-07-17 21:38 | CP.PCM.PN ---
Subjective - Date & Time of Evaluation Date of Evaluation: 07/17/18 Time of Evaluation: 07:45 - Subjective Subjective: clinically same Objective - Vital Signs/Intake and Output Vital Signs (last 24 hours): Temp Pulse Resp BP Pulse Ox 97.1 F L 64 20 158/79 H 97 07/17/18 16:00 07/17/18 16:00 07/17/18 16:00 07/17/18 16:00 07/17/18 16:00 Intake and Output: 07/17/18 07/18/18 18:59 06:59 Intake Total 1049.7 Output Total 700 Balance 349.7 - Medications Medications: Current Medications Clonazepam (Klonopin) 0.5 mg PO TID [facility] Last Admin: 07/17/18 18:04 Dose: 0.5 mg Escitalopram Oxalate (Lexapro) 5 mg PO DAILY [facility] Last Admin: 07/17/18 14:16 Dose: 5 mg Heparin Sodium (Porcine) (Heparin) 5,000 units SC Q8 [facility] Last Admin: 07/17/18 14:23 Dose: 5,000 units Sodium Chloride (Sodium Chloride 0.9%) 1,000 mls @ 100 mls/hr IV .Q10H [facility] Last Admin: 07/17/18 12:01 Dose: 100 mls/hr Methylprednisolone (Solu-Medrol) 40 mg IVP Q6H [facility] Last Admin: 07/17/18 14:22 Dose: 40 mg Pantoprazole Sodium (Protonix Inj) 40 mg IVP DAILY [facility] Last Admin: 07/17/18 09:05 Dose: 40 mg Tramadol HCl (Ultram) 50 mg PO TID PRN PRN Reason: Pain, severe (8-10) Last Admin: 07/17/18 18:05 Dose: 50 mg Trazodone HCl (Desyrel) 50 mg PO HS [facility] - Labs Labs: 07/17/18 06:41 07/17/18 06:41 PT 11.8 SECONDS (9.7-12.2) 07/15/18 21:03 INR 1.1 07/15/18 21:03 APTT 29 SECONDS (21-34) 07/15/18 21:03 - Constitutional Appears: Well - Head Exam Head Exam: ATRAUMATIC, NORMAL INSPECTION, NORMOCEPHALIC - Eye Exam Eye Exam: EOMI, Normal appearance, PERRL Pupil Exam: NORMAL ACCOMODATION, PERRL - ENT Exam ENT Exam: Mucous Membranes Moist, Normal Exam - Neck Exam Neck Exam: Full ROM, Normal Inspection. absent: Lymphadenopathy - Respiratory Exam Respiratory Exam: Decreased Breath Sounds - Cardiovascular Exam Cardiovascular Exam: REGULAR RHYTHM, +S1, +S2 - GI/Abdominal Exam GI & Abdominal Exam: Soft, Diminished Bowel Sounds - Rectal Exam Rectal Exam: Deferred
[2018-07-18] MEDS: MethylPREDNISolone 40 mg Vial IVP SCH ×3 (02:17→13:27)
[2018-07-18 07:42] LABS: BASO % 0.2 % (0.0-2.0); HEMOGLOBIN 13.2 g/dL (11.0-16.0); LYMPH # 0.9 K/uL (1.0-4.3); LYMPH % 8.7 % (20.0-40.0); MEAN CELL VOLUME 91.6 fL (81.0-99.0); MEAN CORPUSCULAR HEMOGLOBIN 31.8 pg (27.0-31.0); MEAN CORPUSCULAR HGB CONC 34.8 g/dL (33.0-37.0); MEAN PLATELET VOLUME 8.7 fL (7.2-11.7); MONO # 0.2 K/uL (0.0-0.8); MONO % 2.1 % (0.0-10.0); NEUT # 9.5 K/uL (1.8-7.0); PLATELET COUNT 245 K/uL (130-400); RBC 4.15 Mil/uL (3.80-5.20); RED CELL DISTRIBUTION WIDTH 13.6 % (11.5-14.5); WHITE BLOOD COUNT 10.6 K/uL (4.8-10.8)
[2018-07-18 07:46] LABS: INR 1.1; PROTHROMBIN TIME 12.2 SECONDS (9.7-12.2)
[2018-07-18 08:23] LABS: ALT/SGPT 25 U/L (9-52)
[2018-07-18 08:31] VITALS: BP 142/79; PULSE 67; TEMP 98.3; O2SAT 97
[2018-07-18 08:42] LABS: ALB/GLOB RATIO 1.1 (1.0-2.1); ALBUMIN 3.4 g/dL (3.5-5.0); AST/SGOT 16 U/L (14-36); BLOOD UREA NITROGEN 9 mg/dL (7-17); GFR NON-AFRICAN AMERICAN > 60
[2018-07-18] MEDS: Sodium Chloride 0.9% 1,000 ML IV SCH (08:51)
[2018-07-18 09:11] LABS: LYMPHOCYTE 8 % (20-40); MONOCYTE 1 % (0-10); NEUTROPHIL 91 % (50-75); TOTAL CELLS COUNTED 100
[2018-07-18 09:12] LABS: PLATELET ESTIMATE NORMAL (NORMAL)
--- NOTE | 2018-07-18 14:34 | CP.PCM.PN ---
Subjective - Date & Time of Evaluation Date of Evaluation: 07/18/18 Time of Evaluation: 11:25 - Subjective Subjective: Patient seen today, awake, alert, ox3 , denies any chest pain, sob,N/V/, no suicidal ideation No overnight events reported by RN seen by Dr. Enamorado, cleared for discharge home today seen by Dr. Qasim cortez , cleared medically for discharge home pateint needs to f/i with [facility] and SW provided all informations Objective - Vital Signs/Intake and Output Vital Signs (last 24 hours): Temp Pulse Resp BP Pulse Ox 98.3 F 67 20 142/79 97 07/18/18 08:30 07/18/18 08:30 07/18/18 08:30 07/18/18 08:30 07/18/18 08:30 Intake and Output: 07/18/18 07/18/18 06:59 18:59 Intake Total 800 Balance 800 - Medications Medications: Current Medications Clonazepam (Klonopin) 0.5 mg PO TID [facility] Last Admin: 07/18/18 13:27 Dose: 0.5 mg Escitalopram Oxalate (Lexapro) 5 mg PO DAILY [facility] Last Admin: 07/18/18 11:03 Dose: 5 mg Heparin Sodium (Porcine) (Heparin) 5,000 units SC Q8 [facility] Last Admin: 07/18/18 13:27 Dose: 5,000 units Sodium Chloride (Sodium Chloride 0.9%) 1,000 mls @ 100 mls/hr IV .Q10H [facility] Last Admin: 07/18/18 08:51 Dose: Not Given Methylprednisolone (Solu-Medrol) 40 mg IVP Q6H [facility] Last Admin: 07/18/18 13:27 Dose: 40 mg Pantoprazole Sodium (Protonix Ec Tab) 40 mg PO DAILY [facility] Tramadol HCl (Ultram) 50 mg PO TID PRN PRN Reason: Pain, severe (8-10) Last Admin: 07/18/18 08:28 Dose: 50 mg Trazodone HCl (Desyrel) 50 mg PO HS [facility] Last Admin: 07/17/18 21:35 Dose: 50 mg - Labs Labs: 07/18/18 07:31 07/18/18 07:31 PT 12.2 SECONDS (9.7-12.2) 07/18/18 07:31 INR 1.1 07/18/18 07:31 APTT 29 SECONDS (21-34) 07/15/18 21:03
--- NOTE | 2018-07-18 14:47 | PCM.PYCHPN ---
Psychiatric Progress Note - Psychiatric Progress Note Patient seen today, length of contact: 18 min Patient Chief Complaint: "Better" Problems Identified/Issues Discussed: The pt is seen, chart reviewed, case discussed with staff. The pt is compliant with medications and reports no side-effects. Symptoms are improving Support given, psycho-education provided. After care discussed. She will [facility] to [facility] and then likely [facility] No longer suicidal, she is future oriented Family is supportive and with her Psych will sign off Discussed with PA Medication Change: No Medical Record Reviewed: Yes Mental Status Examination - Cognitive Function Orientation: Person, Place, Situation, Time Memory: Intact Attention: WNL Concentration: WNL Association: WNL Fund of Knowledge: WNL - Mood Mood: Depressed, Anxious - Affect Affect: Depressed - Speech Speech: Appropriate - Formal Thought Process Formal Thought Process: No Impairment - Suicidal Ideation Suicidal Ideation: No - Homicidal Ideation Homicidal Ideation: No Goal/Treatment Plan - Goal/Treatment Plan Progress Toward Problem(s) and Goals/Treatment Plan: Continue medications Support and psychoeducation daily
--- NOTE | 2018-07-18 15:29 | CP.PCM.PN ---
Subjective - Date & Time of Evaluation Date of Evaluation: 07/18/18 Time of Evaluation: 07:45 - Subjective Subjective: clinically same Objective - Vital Signs/Intake and Output Vital Signs (last 24 hours): Temp Pulse Resp BP Pulse Ox 98.3 F 67 20 142/79 97 07/18/18 08:30 07/18/18 08:30 07/18/18 08:30 07/18/18 08:30 07/18/18 08:30 Intake and Output: 07/18/18 07/18/18 06:59 18:59 Intake Total 800 Balance 800 - Medications Medications: Current Medications Clonazepam (Klonopin) 0.5 mg PO TID [facility] Last Admin: 07/18/18 13:27 Dose: 0.5 mg Escitalopram Oxalate (Lexapro) 5 mg PO DAILY [facility] Last Admin: 07/18/18 11:03 Dose: 5 mg Heparin Sodium (Porcine) (Heparin) 5,000 units SC Q8 [facility] Last Admin: 07/18/18 13:27 Dose: 5,000 units Sodium Chloride (Sodium Chloride 0.9%) 1,000 mls @ 100 mls/hr IV .Q10H [facility] Last Admin: 07/18/18 08:51 Dose: Not Given Methylprednisolone (Solu-Medrol) 40 mg IVP Q6H [facility] Last Admin: 07/18/18 13:27 Dose: 40 mg Pantoprazole Sodium (Protonix Ec Tab) 40 mg PO DAILY [facility] Tramadol HCl (Ultram) 50 mg PO TID PRN PRN Reason: Pain, severe (8-10) Last Admin: 07/18/18 08:28 Dose: 50 mg Trazodone HCl (Desyrel) 50 mg PO HS [facility] Last Admin: 07/17/18 21:35 Dose: 50 mg - Labs Labs: 07/18/18 07:31 07/18/18 07:31 PT 12.2 SECONDS (9.7-12.2) 07/18/18 07:31 INR 1.1 07/18/18 07:31 APTT 29 SECONDS (21-34) 07/15/18 21:03
[2018-07-19] MEDS ORDERED: Pantoprazole 40 mg EC Tab PO SCH (10:00)
== END 2018-07-18 17:15 | disposition home or self-care (01) | DRG 918 ==
LOC: C.ER 16:28 → C.9I 18:04 → C.3T 07-17 12:54
PROVIDERS: ADMIT Internal Medicine Nephrology; ATTEND Internal Medicine Nephrology
DX: T40.2X2A Poisoning by other opioids, intentional self-harm, initial encounter (principal); F32.2 Major depressive disorder, single episode, severe without psychotic features; T43.212A Poisoning by selective serotonin and norepinephrine reuptake inhibitors, intentional self-harm, initial encounter; T42.4X2A Poisoning by benzodiazepines, intentional self-harm, initial encounter; K51.90 Ulcerative colitis, unspecified, without complications; I10 Essential (primary) hypertension; N30.20 Other chronic cystitis without hematuria; N35.9 Urethral stricture, unspecified; K21.9 Gastro-esophageal reflux disease without esophagitis; E78.00 Pure hypercholesterolemia, unspecified; Y92.009 Unspecified place in unspecified non-institutional (private) residence as the place of occurrence of the external cause; Z87.440 Personal history of urinary (tract) infections

== ENCOUNTER 2019-02-03 13:40 | Emergency (ER) | payer MEDICARE, MEDICAID ==
[2019-02-03 13:41] VITALS: BMI 28.8
--- NOTE | 2019-02-03 16:58 | C.PDOC ---
History Of Present Illness Patient is a 63 year old female, with a PMHx of diabetes, GERD, hysterectomy, UTI, cystitis, and depression with previous suicide attempt, presents to the ED c/o suprapubic abdominal pain that she has had for the past 27 years. Patient states that her pain is sharp and throbbing and has been worsening over the past 3 days. Patient also notes associated dysuria and states that her pain feels similar to her cystitis/colitis. She reports seeing her PMD one week ago who ordered additional studies including a US, but has not received her results yet. She denies any constipation, rashes, vaginal discharge, dark or bloody stool, rashes, falls, trauma, or any SI/HI/ depression. Time Seen by Provider: 02/03/19 16:57 Chief Complaint (Nursing): Abdominal Pain History Per: Patient History/Exam Limitations: no limitations Onset/Duration Of Symptoms: Days (3) Current Symptoms Are (Timing): Still Present Location Of Pain/Discomfort: Suprapubic Quality Of Discomfort: Sharp, "Pain", Other (throbbing) Associated Symptoms: Urinary Symptoms (dysuria). denies: Constipation Recent travel outside of the [place]: No Additional History Per: Patient Past Medical History Reviewed: Historical Data, Nursing Documentation, Vital Signs Vital Signs: Last Vital Signs Temp 98.5 F 02/03/19 14:06 Pulse 78 02/03/19 14:06 Resp 18 02/03/19 14:06 BP 94/69 L 02/03/19 14:06 Pulse Ox 98 02/03/19 14:06 - Medical History PMH: Anxiety, Depression, Hypercholesterolemia Denies: Chronic Kidney Disease Surgical History: Endoscopy, Tonsillectomy - [facility] Procedures COLONOSCOPY (04/18/13) ENDOSC POLYPECTOMY OF LG INTEST (06/01/14) TETANUS TOXOID ADMINIST (07/31/13) THERAPEUT DISTENT BLADD (01/27/15) Family History: States: Unknown Family Hx - Social History Hx Tobacco Use: No Hx Alcohol Use: No Hx Substance Use: Yes - Immunization History Hx Tetanus Toxoid Vaccination: No Hx Influenza Vaccination: No Hx Pneumococcal Vaccination: No Review Of Systems Constitutional: Negative for: Fever, Chills, Sweats, Weakness Eyes: Negative for: Pain, Vision Change ENT: Negative for: Ear Pain, Ear Discharge, Nose Pain, Nose Discharge, Nose Congestion, Mouth Pain, Mouth Swelling Cardiovascular: Negative for: Chest Pain, Palpitations Respiratory: Negative for: Cough, Shortness of Breath, SOB with Excertion Gastrointestinal: Positive for: Abdominal Pain (suprapubic). Negative for: Constipation, Melena, Hematochezia Genitourinary: Positive for: Dysuria. Negative for: Frequency, Incontinence, Hematuria, Vaginal Discharge, Vaginal Bleeding, Pelvic Pain Musculoskeletal: Negative for: Neck Pain, Shoulder Pain, Back Pain, Hand Pain Skin: Negative for: Rash Neurological: Negative for: Altered Mental Status, Headache Psych: Negative for: Suicidal ideation, Other (Homicidal ideation) Physical Exam - Physical Exam Appears: Well, Non-toxic, No Acute Distress Skin: Warm, Dry Head: Normacephalic Eye(s): bilateral: Normal Inspection, PERRL, EOMI Nose: Normal Oral Mucosa: Moist Tongue: Normal Appearing Lips: Normal Appearing Teeth: Normal Dentition Gingiva: Normal Appearing Throat: Normal, No Erythema, No Exudate Neck: Trachea Midline, Supple, No Other (No meningeal signs- negative kernig's and brudzinskis) Lymphatic: No Adenopathy Chest: Symmetrical Cardiovascular: Rhythm Regular, No Friction Rub Respiratory: No Rales, No Rhonchi, No Wheezing Gastrointestinal/Abdominal: Soft, Tenderness (suprapubic and LLQ pain ), No Distention Back: Normal Inspection, No CVA Tenderness, No Vertebral Tenderness Extremity: Normal ROM, No Tenderness, No Swelling Extremity: Bilateral: Normal Color And Temperature Pulses: Left Dorsalis Pedis: Normal, Right Dorsalis Pedis: Normal Neurological/Psych: Oriented x3, Normal Speech, Normal Cognition Gait: Steady ED Course And Treatment - Laboratory Results Result Diagrams: 02/03/19 17:35 02/03/19 17:35 ECG: Interpreted By Me, Viewed By Me ECG Rhythm: Sinus Rhythm Interpretation Of ECG: No STEMI Rate From EC O2 Sat by Pulse Oximetry: 98 (on RA) Pulse Ox Interpretation: Normal - CT Scan/US US Transvaginal Other Rad Studies (CT/US): Read By Radiologist, Radiology Report Reviewed CT/US Interpretation: Indication: Suprapubic pain. Comparison: Transvaginal pelvic ultrasound performed 08/12/14. Technique: Real-time transabdominal pelvic ultrasound was performed. In addition a transvaginal pelvic ultrasound was necessary to better depict pelvic anatomy. Findings: The patient is status post hysterectomy. The ovaries are not visualized. No gross abnormality is seen in the pelvis. No mass or free fluid is identified. Impression: Status post hysterectomy. The ovaries are not visualized. No gross abnormality detected in the pelvis. Medical Decision Making Medical Decision Making: Patient is a 63 year old female, with a PMHx of diabetes, GERD, hysterectomy, UTI, cystitis, and depression with previous suicide stuff, presents to the ED c/o suprapubic abdominal pain that she has had for the past 27 years. She denies any recent sexual activity- no sex in years, no abnormal vaginal d/c. She notes her suprapubic pain feels like her previous colitis. Plan: [facility] CAT A&P Labs Urinalysis US Trasvaginal Tylenol 650mg PO IV Fluids 1817 labs unremarkable no uti on labs pending imaging pt in nad 1915 imaging unremarkable pain improved, clear for d/c home with return indications and f/u pt agreeable to plan Disposition - Disposition Referrals: Varsha Mcwilliams [Staff Provider] - Satnam Mendoza MD [Medical Doctor] - [facility] [Outside] [facility] [Outside] [facility] [Outside] Disposition Time: 19:18 Condition: GOOD Additional Instructions: DONALD CHEUNG, thank you for letting us take care of you today. Your provider was Federico Null and you were treated for STOMACH PAIN. The emergency medical care you received today was directed at your acute symptoms. If you were prescribed any medication, please fill it and take as directed. It may take several days for your symptoms to resolve. Return to the Emergency Department if your symptoms worsen, do not improve, or if you have any other problems. Please contact your doctor or call one of the physicians/clinics you have been referred to that are listed on the Patient Visit Information form that is inc luded in your discharge packet. Bring any paperwork you were given at discharge with you along with any medications you are taking to your follow up visit. Our treatment cannot replace ongoing medical care by a primary care provider outside of the emergency department. Thank you for allowing the [facility] team to be part of your care today. If you had an X-Ray or CT scan: A Radiologist will review the ED reading if any change in treatment is needed we will contact you. If you had a blood, urine, or wound culture: It will take several days for the results, if any change in treatment is needed we will contact you. If you had an STI test: It will take 48 hours for the results. Please call after 1 week if you have not heard back. Instructions: Acute Abdomen (Belly Pain), Adult (DC), Diverticulosis Forms: [employer] (Uzbek) - Clinical Impression Clinical Impression: Abdominal pain, Diverticulosis - Scribe Statement The provider has reviewed the documentation as recorded by the Tabatha Bernardo All medical record entries made by the Tabatha were at my direction and personally dictated by me. I have reviewed the chart and agree that the record accurately reflects my personal performance of the history, physical exam, [facility] decision making, and the department course for this patient. I have also personally directed, reviewed, and agree with the discharge instructions and disposition.
[2019-02-03] MEDS ORDERED: Sodium Chloride 0.9% 1,000 ML IV SCH (17:15)
[2019-02-03 17:39] LABS: VENOUS BLOOD GAS BASE EXCESS 1.3 mmol/L (0.0-2.0); VENOUS BLOOD GAS PCO2 47 mmHg (40-60); VENOUS BLOOD GAS PO2 28 mm/Hg (30-55); VENOUS BLOOD PH 7.37 (7.32-7.43)
[2019-02-03 17:39] LABS: BASO # 0.1 K/uL (0.0-0.2); BASO % 1.4 % (0.0-2.0); EOS % 0.5 % (0.0-4.0); HEMOGLOBIN 13.3 g/dL (11.0-16.0); LYMPH % 32.6 % (20.0-40.0); MEAN CELL VOLUME 92.3 fL (81.0-99.0); MEAN CORPUSCULAR HEMOGLOBIN 30.9 pg (27.0-31.0); MEAN CORPUSCULAR HGB CONC 33.4 g/dL (33.0-37.0); MEAN PLATELET VOLUME 8.2 fL (7.2-11.7); MONO # 0.4 K/uL (0.0-0.8); MONO % 6.1 % (0.0-10.0); NEUT # 3.7 K/uL (1.8-7.0); NEUT % 59.4 % (50.0-75.0); NRBC % 0.1 % (0.0-2.0); RBC 4.3 Mil/uL (3.80-5.20); RED CELL DISTRIBUTION WIDTH 15.1 % (11.5-14.5); WHITE BLOOD COUNT 6.2 K/uL (4.8-10.8)
[2019-02-03 17:50] LABS: SQUAMOUS EPITHIAL 1 /hpf (0-5); URINE BILIRUBIN NEGATIVE (NEGATIVE); URINE BLOOD NEGATIVE (NEGATIVE); URINE CLARITY Clear (Clear); URINE COLOR Yellow (YELLOW); URINE GLUCOSE (UA) NORMAL (Normal); URINE LEUKOCYTE ESTERASE NEG Leu/uL (Negative); URINE PROTEIN NEGATIVE (NEGATIVE); URINE UROBILINOGEN NORMAL mg/dL (0.2-1.0)
[2019-02-03 17:54] LABS: ALB/GLOB RATIO 1.3 (1.0-2.1); ALBUMIN 4.1 g/dL (3.5-5.0); ALT/SGPT 22 U/L (9-52); AST/SGOT 24 U/L (14-36); BLOOD UREA NITROGEN 13 mg/dL (7-17); CALCIUM 9.8 mg/dl (8.6-10.4); GFR NON-AFRICAN AMERICAN > 60; LIPASE 77 U/L (23-300)
[2019-02-03 18:10] VITALS: BP 115/73; PULSE 66; RESP 16; TEMP 97.6
[2019-02-03 18:18] VITALS: O2SAT 98
[2019-02-03] MEDS ORDERED: Iohexol 300 100 ML IJ ONE (18:26)
--- NOTE | 2019-02-03 18:54 | US ---
Indication: Suprapubic pain Comparison: Transvaginal pelvic ultrasound performed 08/12/14 Technique: Real-time transabdominal pelvic ultrasound was performed. In addition a transvaginal pelvic ultrasound was necessary to better depict pelvic anatomy. Findings: The patient is status post hysterectomy. The ovaries are not visualized. No gross abnormality is seen in the pelvis. No mass or free fluid is identified. Impression: Status post hysterectomy. The ovaries are not visualized. No gross abnormality detected in the pelvis.
--- NOTE | 2019-02-03 19:12 | CT ---
Date of service: 02/03/2019 PROCEDURE: CT Abdomen and Pelvis with contrast HISTORY: llq, suprapubic abd pian COMPARISON: Comparison is made to the previous study dated 12/01/2015 TECHNIQUE: Contrast dose: 100 mL of Omnipaque 300 intravenously. Axial and reformatted coronal and sagittal CT images of the abdomen and pelvis were obtained after IV contrast administration. Radiation dose: Total exam DLP = 904.98 mGy-cm. This CT exam was performed using one or more of the following dose reduction techniques: Automated exposure control, adjustment of the mA and/or kV according to patient size, and/or use of iterative reconstruction technique. FINDINGS: LOWER THORAX: Unremarkable. LIVER: Again noted is low-attenuation cystic lesion in the right liver lobe appears larger compared to the previous exam. GALLBLADDER AND BILE DUCTS: Unremarkable. PANCREAS: Unremarkable. No gross lesion or ductal dilatation. SPLEEN: Unremarkable. ADRENALS: Unremarkable. No mass. KIDNEYS AND URETERS: No significant interval changes in the kidneys noted since the previous exam. Mildly dilated right kidney collecting system is again noted. VASCULATURE: Unremarkable. No aortic aneurysm. No aortic atherosclerotic calcification or mural plaque present. BOWEL: Unremarkable. No obstruction. No gross mural thickening. Few scattered colonic diverticulosis are noted. No definite evidence of diverticulitis. APPENDIX: Normal appendix. PERITONEUM: Unremarkable. No free fluid. No free air. LYMPH NODES: Unremarkable. No enlarged lymph nodes. BLADDER: The urinary bladder is not distended. REPRODUCTIVE: The uterus and adnexa are not visualized. BONES: No acute fracture. OTHER FINDINGS: None. IMPRESSION: Few colonic diverticulosis noted without evidence of diverticulitis. No definite CT evidence of acute pathology in the abdomen and pelvis.
--- NOTE | 2019-02-05 21:21 | CARD ---
APPROVED REPORT Date of service: 02/03/2019 EKG Measurement Heart [id number] OH [id number] <Conclusion> Normal sinus rhythm Normal ECG
== END 2019-02-03 19:32 | disposition home or self-care (01) ==
LOC: C.ER 13:40
DX: K57.90 Diverticulosis of intestine, part unspecified, without perforation or abscess without bleeding (principal); R10.30 Lower abdominal pain, unspecified
CPT/HCPCS: 74177; 76830; 76856; 80053; 81001; 82803; 83690; 85025; 93005; 99284; J7030; Q9967

== ENCOUNTER 2019-02-24 00:13 | Inpatient (IN) | payer MEDICAID, MEDICARE, OTHER ==
[2019-02-24 00:14] VITALS: BMI 28.8
[2019-02-24] MEDS ORDERED: Sodium Chloride 0.9% 1,000 ML IV ONE (00:45)
[2019-02-24 00:57] LABS: BASO % 0.6 % (0.0-2.0); EOS % 0.5 % (0.0-4.0); HEMOGLOBIN 14.1 g/dL (11.0-16.0); LYMPH % 29.8 % (20.0-40.0); MEAN CELL VOLUME 93.2 fL (81.0-99.0); MEAN CORPUSCULAR HEMOGLOBIN 31.2 pg (27.0-31.0); MEAN CORPUSCULAR HGB CONC 33.5 g/dL (33.0-37.0); MEAN PLATELET VOLUME 8.9 fL (7.2-11.7); MONO # 0.6 K/uL (0.0-0.8); MONO % 9.2 % (0.0-10.0); NEUT % 59.9 % (50.0-75.0); NRBC % 0.2 % (0.0-2.0); RBC 4.52 Mil/uL (3.80-5.20); RED CELL DISTRIBUTION WIDTH 15.1 % (11.5-14.5); WHITE BLOOD COUNT 6.7 K/uL (4.8-10.8)
[2019-02-24 01:10] LABS: SALICYLATE < 1.0 mg/dL 1
[2019-02-24 01:15] LABS: ALB/GLOB RATIO 1.3 (1.0-2.1); ALBUMIN 3.9 g/dL (3.5-5.0); ALT/SGPT 16 U/L (9-52); AST/SGOT 28 U/L (14-36); BLOOD UREA NITROGEN 14 mg/dL (7-17); CALCIUM 9.5 mg/dl (8.6-10.4); GFR NON-AFRICAN AMERICAN 46
[2019-02-24 01:16] LABS: ABG ALLEN TEST POS; ARTERIAL BLOOD GAS HCO3 22.6 mmol/L (21-28); ARTERIAL BLOOD GAS HEMOGLOBIN 12.1 g/dL (11.7-17.4); ARTERIAL BLOOD GAS O2 SAT 90.6 % (95-98); ARTERIAL BLOOD GAS PCO2 44 mm/Hg (35-45); ARTERIAL BLOOD GAS PH 7.33 (7.35-7.45); ARTERIAL BLOOD GAS PO2 55 mm/Hg (80-100); ARTERIAL BLOOD GAS TCO2 24.6 mmol/L (22-28)
--- NOTE | 2019-02-24 01:55 | C.PDOC ---
History Of Present Illness 63 year old female is brought to the ED by EMS accompanied by family member for evaluation. As per family member patient was lethargic that started today at 16:00. Patient took too many narcotics at home. Patient was give narcan en route by EMS. Chief Complaint (Nursing): Medical Clearance History Per: Patient, EMS, Family History/Exam Limitations: no limitations Onset/Duration Of Symptoms: Hrs Current Symptoms Are (Timing): Still Present Recent travel outside of the [place]: No Additional History Per: Patient, EMS Past Medical History Reviewed: Historical Data, Nursing Documentation, Vital Signs Vital Signs: Last Vital Signs Temp 98.5 F 02/24/19 01:04 Pulse 95 H 02/24/19 01:04 Resp 20 02/24/19 01:04 BP 138/89 02/24/19 01:04 Pulse Ox 100 02/24/19 01:04 - Medical History PMH: Anxiety, Depression, Hypercholesterolemia Denies: Chronic Kidney Disease Surgical History: Endoscopy, Tonsillectomy - [facility] Procedures COLONOSCOPY (04/18/13) ENDOSC POLYPECTOMY OF LG INTEST (06/01/14) TETANUS TOXOID ADMINIST (07/31/13) THERAPEUT DISTENT RAJEEV (01/27/15) Family History: States: Unknown Family Hx - Social History Hx Tobacco Use: No Hx Alcohol Use: No Hx Substance Use: Yes (oxycodone) - Immunization History Hx Tetanus Toxoid Vaccination: No Hx Influenza Vaccination: No Hx Pneumococcal Vaccination: No Review Of Systems Constitutional: Negative for: Fever, Chills Cardiovascular: Negative for: Chest Pain Respiratory: Negative for: Shortness of Breath Gastrointestinal: Negative for: Nausea, Vomiting, Abdominal Pain Skin: Negative for: Rash Neurological: Negative for: Weakness, Numbness Physical Exam - Physical Exam Appears: Non-toxic, Other (lethargic) Skin: Normal Color, Warm, Dry Head: Atraumatic, Normacephalic Eye(s): bilateral: Normal Inspection Oral Mucosa: Moist Neck: Normal ROM, Supple Chest: Symmetrical Cardiovascular: Rhythm Regular Respiratory: Normal Breath Sounds, No Rales, No Rhonchi, No Wheezing Gastrointestinal/Abdominal: Soft, No Tenderness, No Distention Extremity: Normal ROM Neurological/Psych: Oriented x3, Other (lethargic) Gait: Unable To Assess ED Course And Treatment - Laboratory Results Result Diagrams: 02/24/19 00:52 02/24/19 00:52 Lab Results: Puncture Site Rr 02/24/19 01:14 pCO2 44 mm/Hg (35-45) 02/24/19 01:14 pO2 55 mm/Hg (80-100) L 02/24/19 01:14 HCO3 22.6 mmol/L (21-28) 02/24/19 01:14 ABG pH 7.33 (7.35-7.45) L 02/24/19 01:14 ABG Total CO2 24.6 mmol/L (22-28) 02/24/19 01:14 ABG O2 Saturation 90.6 % (95-98) L 02/24/19 01:14 ABG Base Excess -2.8 mmol/L (-2.0-3.0) L 02/24/19 01:14 ABG Hemoglobin 12.1 g/dL (11.7-17.4) 02/24/19 01:14 ABG Carboxyhemoglobin 0.4 % (0.5-1.5) L 02/24/19 01:14 POC ABG HHb (Measured) 9.3 % (0.0-5.0) H 02/24/19 01:14 ABG Methemoglobin 0.3 % (0.0-3.0) 02/24/19 01:14 Sung Test Pos 02/24/19 01:14 A-a O2 Difference 40.0 mm/Hg 02/24/19 01:14 Respiratory Index 0.7 02/24/19 01:14 Hgb O2 Saturation 90.0 % (95.0-98.0) L 02/24/19 01:14 FiO2 21.0 % 02/24/19 01:14 Total Bilirubin 0.4 mg/dL (0.2-1.3) 02/24/19 00:52 AST 28 U/L (14-36) 02/24/19 00:52 ALT 16 U/L (9-52) 02/24/19 00:52 Alkaline Phosphatase 69 U/L (38-126) 02/24/19 00:52 Total Protein 6.9 g/dL (6.3-8.3) 02/24/19 00:52 Albumin 3.9 g/dL (3.5-5.0) 02/24/19 00:52 Globulin 3.0 gm/dL (2.2-3.9) 02/24/19 00:52 Albumin/Globulin Ratio 1.3 (1.0-2.1) 02/24/19 00:52 ECG: Interpreted By Me, Viewed By Me ECG Rhythm: Sinus Rhythm, Nonspecific Changes ECG Interpretation: No Acute Changes, Abnormal Interpretation Of ECG: NSR, prolonged QT interval,non spc st-t changes. Rate From EC O2 Sat by Pulse Oximetry: 100 (ON RA) Pulse Ox Interpretation: Normal - CT Scan/US CT head Other Rad Studies (CT/US): Read By Radiologist, Radiology Report Reviewed CT/US Interpretation: CT scan of the head. CLINICAL HISTORY: Lethargic patient. Substance abuse. TECHNIQUE: Multiple axial CT images were obtained through the brain without IV contrast material. COMMENTS: There is normal configuration of sella turcica. There are no intra or extra-axial collections. There is no mass effect or midline shift. There is no evidence of hematoma formation. No hydrocephalus is present. The ventricles are symmetrical. No abnormal calcifications are present. There is diffuse age-appropriate cerebellar and cerebral atrophy with proportionally dilated ventricles and cortical sulci. There are bilateral periventricular and subcortical white matter hypolucencies compatible with mild chronic microvascular disease. Otherwise, no significant focal abnormalities are seen either in the posterior fossa or supratentorial compartment. Minimal chronic mucosal inflammatory changes of the maxillary sinuses and ethmoid air cells. IMPRESSION: 1. Age-appropriate cerebellar and cerebral atrophy. 2. Mild chronic microvascular disease. 3. No evidence of acute intracranial pathology. Thank you for your kind referral of this patient. . Electronically signed on Feb 24, 2019 2:21:04 AM EDT by: Jolanta Pan M.D., Certified by ABR, MSK, Neuroradiology. Medical Decision Making Medical Decision Making: Plan: * CT head * ABG * EKG * Labs * IV fluids * UA * 1:1 Obs Disposition Discussed With : Jennifer Carter Doctor Will See Patient In The: Hospital Counseled Patient/Family Regarding: Diagnosis - Disposition Disposition: HOSPITALIZED Disposition Time: 04:11 Condition: STABLE Forms: [facility] (Djiboutian) - POA Present On Arrival: None - Clinical Impression Clinical Impression: Intentional drug overdose, Suicidal overdose - Scribe Statement The provider has reviewed the documentation as recorded by the Scribe Edd Mina All medical record entries made by the Scribe were at my direction and per sonally dictated by me. I have reviewed the chart and agree that the record accurately reflects my personal performance of the history, physical exam, medical decision making, and the department course for this patient. I have also personally directed, reviewed, and agree with the discharge instructions and disposition.
[2019-02-24 02:25] LABS: URINE HYALINE CAST 0-2 /lpf (0-2)
[2019-02-24 02:27] LABS: URINE BILIRUBIN NEGATIVE (NEGATIVE); URINE BLOOD NEGATIVE (NEGATIVE); URINE CLARITY Clear (Clear); URINE COLOR YELLOW (YELLOW); URINE GLUCOSE (UA) NEGATIVE (Normal); URINE LEUKOCYTE ESTERASE NEGATIVE Leu/uL (Negative); URINE PROTEIN NEGATIVE (NEGATIVE); URINE UROBILINOGEN 0.2 mg/dL (0.2-1.0)
[2019-02-24 02:43] LABS: BARBITURATES, UR NEGATIVE (NEGATIVE); PHENCYCLIDINE, UR NEGATIVE (NEGATIVE)
[2019-02-24 02:53] LABS: BENZODIAZEPINES, UR POSITIVE (NEGATIVE); OPIATES, UR POSITIVE (NEGATIVE)
[2019-02-24] MEDS: Sodium Chloride 0.45% 1,000 ML IV SCH ×2 (06:00→16:00)
--- NOTE | 2019-02-24 08:19 | CT ---
Date of service: 02/24/2019 PROCEDURE: CT HEAD WITHOUT CONTRAST. HISTORY: lethargic COMPARISON: None available. TECHNIQUE: Axial computed tomography images were obtained through the head/brain without intravenous contrast. Radiation dose: Total exam DLP = 905.15 mGy-cm. This CT exam was performed using one or more of the following dose reduction techniques: Automated exposure control, adjustment of the mA and/or kV according to patient size, and/or use of iterative reconstruction technique. FINDINGS: HEMORRHAGE: No intracranial hemorrhage. BRAIN: There are mild chronic microangiopathic changes. There is no mass, mass effect or abnormal extra-axial fluid collection. There is no territorial infarction. The midline sagittal structures are normal. VENTRICLES: There is mild age-related global parenchymal volume loss and proportionate enlargement of the ventricles and cortical sulci. CALVARIUM: There is no calvarial fracture or extracranial soft tissue swelling. PARANASAL SINUSES: Predominantly clear. MASTOID AIR CELLS: Predominantly clear. OTHER FINDINGS: None. IMPRESSION: No acute intracranial abnormality. Mild chronic microangiopathic changes and mild age-related global parenchymal volume loss. A preliminary report was provided by [facility].
--- NOTE | 2019-02-24 08:41 | RAD ---
Chest x-ray single frontal view HISTORY: Admission film. COMPARISON: 07/15/2018 FINDINGS: Mild venous congestion. Patchy increased markings at the left lung base with blunted left costophrenic angle which may represent a trace effusion. Tortuous aorta. Top normal heart size. Degenerative changes in the spine. Linear radiopaque density projects over the right upper lung zone likely external. IMPRESSION: Mild venous congestion. Patchy increased markings at the left lung base with blunted left costophrenic angle which may represent a trace effusion. Tortuous aorta.
[2019-02-24] MEDS: Enoxaparin 40 mg Syringe SC SCH (10:07)
--- NOTE | 2019-02-24 12:20 | PCM.PSYCH ---
Initial Psychiatric Evaluation - Initial Psychiatric Evaluation Type of Admission: Voluntary Chief Complaint (in patient's own words): "Tired" History of Present Illness and Precipitating Events: Patient seen and examined, chart reviewed and treatment discussed. Patient is a 62 year old female, currently with three adult children. She lives in an apartment with her 46 year old son. She is unemployed, not on disability. Patient is lethargic and current history was mostly taken from daughter at bedside and patient records. Patient is consulted to psych due to oxycodone and Xanax overdose. She was found at home by her daughter on yesterday night, non arousable and lethargic. She was found with almost empty bottles of oxycodone and Xanax. The oxycodone and Xanax are prescribed by a nurse practitioner at her pain clinic, across the street from [facility] for ulcerative colitis. Patient has a history of overdose on her prescriptions, on 07/15/18. During this hospitalization, last night she told family members let me go to [facility], I dont want to be here. Pt says she is depressed. She wouldn't comment on suicide now. Pt has a terminally sick mother who is non-verbal. Patients daughter believes that this may have had an effect on patients current state. Psych Hx One more suicide attempt Fam Psych HX Daughter has depression too. Medications Oxycodone, Xanax, Metformin, Omeprazole, Lexapro, Bentyl, Clonazepam, Hyoscyamine Sulfate PMHx Collitis Social hx Denies Trauma Denies Current Medications: Active Medications Generic Name Dose Route Start Last Admin Trade Name Jovan PRN Reason Stop Dose Admin Enoxaparin Sodium 40 mg 02/24/19 10:00 02/24/19 10:07 Lovenox SC 40 mg DAILY KESHAV Administration Sodium Chloride 1,000 mls @ 100 mls/hr 02/24/19 06:00 02/24/19 06:00 Sodium Chloride 0.45% IV 100 mls/hr .Q10H KESHAV Administration Pantoprazole Sodium 40 mg 02/24/19 10:00 02/24/19 10:06 Protonix Inj IVP 40 mg DAILY KESHAV Administration Past Psychiatric History - Past Psychiatric History Previous Treatment History: Intensive Outpatient Pertinent Medical Hx (Current Medical&Sleep Prob, Allergies): Allergies Allergy/AdvReac Type Severity Reaction Status Date / Time caffeine Allergy Verified 02/03/19 14:11 milk Allergy Verified 02/03/19 14:11 Penicillins Allergy Verified 02/03/19 14:11 Escitalopram [Lexapro] 10 mg PO DAILY 7 Days tab 07/18/18 Clonazepam 1 mg PO TID PRN 02/03/19 Dicyclomine [Bentyl] 20 mg PO BID 02/03/19 Hyoscyamine Sulfate 0.125 mg PO Q4 PRN 02/03/19 Omeprazole 40 mg PO QAM 02/03/19 metFORMIN [glucOPHAGE] 500 mg PO HS 02/03/19 Alprazolam [Xanax] 2 mg PO BID PRN 02/24/19 Oxycodone HCl/Acetaminophen [Percocet 10-325 mg Tablet] 10 mg PO Q8 PRN 02/24/19 Review of Systems - Psychiatric Psychiatric: Abnormal Sleep Pattern, Anhedonia, Anxiety, Depression, Difficulty Concentrating, Hopelessness, Suicidal Ideation (no plans). absent: Hallucinations, Homicidal Ideation Mental Status Examination - Personal Presentation Personal Presentation: Looks stated age - Affect Affect: Constricted - Motor Activity Motor Activity: Calm - Reliability in Providing Information Reliability in Providing Information: Good - Speech Speech: Other (slowed) - Mood Mood: Depressed, Anxious - Formal Thought Process Formal Thought Process: No Impairment - Cognitive Functions Orientation: Person, Place, Situation Sensorium: Drowsy Attention/Concentration: Easily distracted Abstract Thinking: Kaplan Estimate of Intelligence: Average Judgement: Imparied, as evidence by: Poor judgement Memory: Recent intact, as evidence by: Ability to recall events of the day, Remote impaired as evidenced by: Inability to recall sig life events - Risk Risk: Withdrawal, Diminished functioning - Strength & Assets Inventory Strength & Assets Inventory: Family support, Cooperative - Limitations Limitations: Living alone DSM 5 DX - DSM 5 DSM 5 Diagnosis: Major Depressive d/o - recurrent, severe MAYELIN Ulcerative colitis? - Recommended/Plan of Treatment Treatment Recommendations and Plan of Treatment: Resume antidepressant when she is less sedated and clears medically Transfer to 5 E psych when medically cleared BUT please call [facility] to inquire about beds etc. She seems NOT ready today as she is very lethargic. GI consult to evaluate for chronic persistent GI pain, saltyh seems to have caused her suicide attempt Monitor for opioid withdrawal As needed medications All risks, benefits and alternatives of the meds discussed, and the pt agreed and understood. Attend groups and activities Supportive therapy and psychoeducation IA for abstinence Teach healthy lifestyle methods, i.e. diet, exercise, meditation 34 min
--- NOTE | 2019-02-24 17:56 | CP.PCM.HP ---
Past Patient History - Infectious Disease Hx of Infectious Diseases: None - Past Medical History & Family History Past Medical History?: Yes - Past Social History Smoking Status: Unknown If Ever Smoked - CARDIAC Hx Hypercholesterolemia: Yes - PULMONARY Hx Respiratory Disorders: No - NEUROLOGICAL Hx Neurological Disorder: No - HEENT Hx HEENT Problems: Yes Hx Cataracts: Yes (bilat iol) - RENAL Hx Chronic Kidney Disease: No - ENDOCRINE/METABOLIC Hx Endocrine Disorders: No - HEMATOLOGICAL/ONCOLOGICAL Hx Blood Disorders: No - INTEGUMENTARY Hx Dermatological Problems: No - MUSCULOSKELETAL/RHEUMATOLOGICAL Hx Falls: No - GASTROINTESTINAL Hx Gastrointestinal Disorders: Yes Hx Colitis: Yes Hx Gastroesophageal Reflux: Yes - GENITOURINARY/GYNECOLOGICAL Hx Genitourinary Disorders: Yes Hx Urinary Tract Infection: Yes (CHRONIC CYSTITIS) Other/Comment: urethral stricture - PSYCHIATRIC Hx Anxiety: Yes Hx Depression: Yes Hx Substance Use: Yes (oxycodone) - SURGICAL HISTORY Hx Tonsillectomy: Yes - ANESTHESIA Hx Anesthesia: Yes Hx Malignant Hyperthermia: No Meds Allergies/Adverse Reactions: Allergies Allergy/AdvReac Type Severity Reaction Status Date / Time caffeine Allergy Verified 02/03/19 14:11 milk Allergy Verified 02/03/19 14:11 Penicillins Allergy Verified 02/03/19 14:11 Results - Vital Signs Recent Vital Signs: Last Vital Signs Temp 98.6 F 02/24/19 15:32 Pulse 87 02/24/19 15:32 Resp 20 02/24/19 15:32 BP 105/68 02/24/19 15:32 Pulse Ox 97 02/24/19 15:32 - Labs Result Diagrams: 02/24/19 00:52 02/24/19 00:52 Labs: Laboratory Results - last 24 hr 02/24/19 02/24/19 02/24/19 00:31 00:52 00:52 WBC 6.7 RBC 4.52 Hgb 14.1 Hct 42.2 MCV 93.2 MCH 31.2 H MCHC 33.5 RDW 15.1 H Plt Count 219 MPV 8.9 Neut % (Auto) 59.9 Lymph % (Auto) 29.8 Mayes % (Auto) 9.2 Eos % (Auto) 0.5 Baso % (Auto) 0.6 Neut # (Auto) 4.0 Lymph # (Auto) 2.0 Mayes # (Auto) 0.6 Eos # (Auto) 0.0 Baso # (Auto) 0.0 Puncture Site pCO2 pO2 HCO3 ABG pH ABG Total CO2 ABG O2 Saturation ABG Base Excess ABG Hemoglobin ABG Carboxyhemoglobin POC ABG HHb (Measured) ABG Methemoglobin Sung Test A-a O2 Difference Respiratory Index Hgb O2 Saturation FiO2 Sodium 136 Potassium 4.2 Chloride 106 Carbon Dioxide 24 Anion Gap 10 BUN 14 Creatinine 1.2 Est GFR ( Amer) 55 Est GFR (Non-Af Amer) 46 POC Glucose (mg/dL) 120 H Random Glucose 108 H Lactic Acid Calcium 9.5 Phosphorus 6.1 H Magnesium 2.3 Total Bilirubin 0.4 AST 28 ALT 16 Alkaline Phosphatase 69 Total Creatine Kinase Total Protein 6.9 Albumin 3.9 Globulin 3.0 Albumin/Globulin Ratio 1.3 Urine Color Urine Clarity Urine pH Ur Specific Whitney Urine Protein Urine Glucose (UA) Urine Ketones Urine Blood Urine Nitrate Urine Bilirubin Urine Urobilinogen Ur Leukocyte Esterase Urine WBC (Auto) Urine RBC (Auto) Hyaline Casts Salicylates Urine Opiates Screen Urine Methadone Screen Acetaminophen Ur Barbiturates Screen Ur Phencyclidine Scrn Ur Amphetamines Screen U Benzodiazepines Scrn U Oth Cocaine Metabols U Cannabinoids Screen Alcohol, Quantitative < 10 02/24/19 02/24/19 02/24/19 00:52 01:14 02:17 WBC RBC Hgb Hct MCV MCH MCHC RDW Plt Count MPV Neut % (Auto) Lymph % (Auto) Mayes % (Auto) Eos % (Auto) Baso % (Auto) Neut # (Auto) Lymph # (Auto) Mayes # (Auto) Eos # (Auto) Baso # (Auto) Puncture Site Rr pCO2 44 pO2 55 L HCO3 22.6 ABG pH 7.33 L ABG Total CO2 24.6 ABG O2 Saturation 90.6 L ABG Base Excess -2.8 L ABG Hemoglobin 12.1 ABG Carboxyhemoglobin 0.4 L POC ABG HHb (Measured) 9.3 H ABG Methemoglobin 0.3 Sung Test Pos A-a O2 Difference 40.0 Respiratory Index 0.7 Hgb O2 Saturation 90.0 L FiO2 21.0 Sodium Potassium Chloride Carbon Dioxide Anion Gap BUN Creatinine Est GFR ( Amer) Est GFR (Non-Af Amer) POC Glucose (mg/dL) Random Glucose Lactic Acid Calcium Phosphorus Magnesium Total Bilirubin AST ALT Alkaline Phosphatase Total Creatine Kinase Total Protein Albumin Globulin Albumin/Globulin Ratio Urine Color Yellow Urine Clarity Clear Urine pH 6.0 Ur Specific Whitney 1.025 Urine Protein Negative Urine Glucose (UA) Negative Urine Ketones Trace Urine Blood Negative Urine Nitrate Negative Urine Bilirubin Negative Urine Urobilinogen 0.2 Ur Leukocyte Esterase Negative Urine WBC (Auto) 2 Urine RBC (Auto) < 1 Hyaline Casts 0-2 Salicylates < 1.0 Urine Opiates Screen Urine Methadone Screen Acetaminophen 24.0 Ur Barbiturates Screen Ur Phencyclidine Scrn Ur Amphetamines Screen U Benzodiazepines Scrn U Oth Cocaine Metabols U Cannabinoids Screen Alcohol, Quantitative 02/24/19 02/24/19 02/24/19 02:17 03:05 03:05 WBC RBC Hgb Hct MCV MCH MCHC RDW Plt Count MPV Neut % (Auto) Lymph % (Auto) Mayes % (Auto) Eos % (Auto) Baso % (Auto) Neut # (Auto) Lymph # (Auto) Mayes # (Auto) Eos # (Auto) Baso # (Auto) Puncture Site pCO2 pO2 HCO3 ABG pH ABG Total CO2 ABG O2 Saturation ABG Base Excess ABG Hemoglobin ABG Carboxyhemoglobin POC ABG HHb (Measured) ABG Methemoglobin Sung Test A-a O2 Difference Respiratory Index Hgb O2 Saturation FiO2 Sodium Potassium Chloride Carbon Dioxide Anion Gap BUN Creatinine Est GFR ( Amer) Est GFR (Non-Af Amer) POC Glucose (mg/dL) Random Glucose Lactic Acid 0.8 Calcium Phosphorus Magnesium Total Bilirubin AST ALT Alkaline Phosphatase Total Creatine Kinase 155 H Total Protein Albumin Globulin Albumin/Globulin Ratio Urine Color Urine Clarity Urine pH Ur Specific Whitney Urine Protein Urine Glucose (UA) Urine Ketones Urine Blood Urine Nitrate Urine Bilirubin Urine Urobilinogen Ur Leukocyte Esterase Urine WBC (Auto) Urine RBC (Auto) Hyaline Casts Salicylates Urine Opiates Screen Positive H Urine Methadone Screen Negative Acetaminophen Ur Barbiturates Screen Negative Ur Phencyclidine Scrn Negative Ur Amphetamines Screen Negative U Benzodiazepines Scrn Positive U Oth Cocaine Metabols Negative U Cannabinoids Screen Positive H Alcohol, Quantitative
[2019-02-25 07:35] LABS: BLOOD UREA NITROGEN 6 mg/dL (7-17); CALCIUM 9.1 mg/dl (8.6-10.4); GFR NON-AFRICAN AMERICAN > 60
[2019-02-25] MEDS ORDERED: Potassium & Sodium Phosphate PO ONE (08:00)
[2019-02-25] MEDS: Enoxaparin 40 mg Syringe SC SCH (09:39)
--- NOTE | 2019-02-25 13:08 | PCM.PYCHPN ---
Psychiatric Progress Note - Psychiatric Progress Note Patient seen today, length of contact: 15 min Patient Chief Complaint: "Pain" Problems Identified/Issues Discussed: Still the same, lethargic but more verbal Still c/o pain in her abdomen GI is consulted Will wait for them complete eval before transferring to She agreed with transfer. Still down and SI but vague, no plan or urge Medication Change: No Medical Record Reviewed: Yes Mental Status Examination - Cognitive Function Orientation: Person, Place, Situation Memory: Impaired Attention: Poor Concentration: Poor Association: WNL Fund of Knowledge: Poor - Mood Mood: Depressed, Anxious - Affect Affect: Constricted - Speech Speech: Appropriate - Formal Thought Process Formal Thought Process: No Impairment - Suicidal Ideation Suicidal Ideation: No - Homicidal Ideation Homicidal Ideation: No Goal/Treatment Plan - Goal/Treatment Plan Need for Continued Stay: Severe depression anxiety, Discharge may exacerbated symptoms, Severe functional impairment, Other (medical clearance) Progress Toward Problem(s) and Goals/Treatment Plan: Resume antidepressant when she is less sedated and clears medically Transfer to E psych when medically cleared BUT please call script writer first to inquire about beds etc. She seems NOT ready today as she is very lethargic. GI consult to evaluate for chronic persistent GI pain, whcih seems to have caused her suicide attempt Monitor for opioid withdrawal As needed medications All risks, benefits and alternatives of the meds discussed, and the pt agreed and understood. Attend groups and activities Supportive therapy and psychoeducation AR for abstinence Teach healthy lifestyle methods, i.e. diet, exercise, meditation
[2019-02-25 17:39] LABS: INR 1.1; PROTHROMBIN TIME 12.2 SECONDS (9.7-12.2)
--- NOTE | 2019-02-25 20:40 | CARD ---
APPROVED REPORT Date of service: 02/24/2019 EKG Measurement Heart [id number] <Conclusion> Normal sinus rhythm Nonspecific T wave abnormality Abnormal ECG
--- NOTE | 2019-02-25 20:41 | CARD ---
APPROVED REPORT Date of service: 02/24/2019 EKG Measurement Heart [id number] <Conclusion> Normal sinus rhythm Nonspecific T wave abnormality Prolonged QT Abnormal ECG
[2019-02-25] MEDS: Sodium Chloride 0.45% 1,000 ML IV SCH (22:01)
[2019-02-26 07:53] LABS: BLOOD UREA NITROGEN 7 mg/dL (7-17); CALCIUM 9.2 mg/dl (8.6-10.4); GFR NON-AFRICAN AMERICAN > 60
[2019-02-26] MEDS: Enoxaparin 40 mg Syringe SC SCH (09:47)
[2019-02-26] MEDS ORDERED: Pneumococcal 23-Valent Vaccine IM ONE (10:00)
--- NOTE | 2019-02-26 11:53 | PCM.PYCHPN ---
Psychiatric Progress Note - Psychiatric Progress Note Patient seen today, length of contact: 18 min Patient Chief Complaint: "Tired" Problems Identified/Issues Discussed: The pt is seen, chart reviewed, case discussed with staff. Support and psychoeducation given Pt is improving slowly and needs more time, still has ongoing symptoms. No SEs from medications, risks discussed. After care discussed Wants to go home but daughter wants her in 5E Not suicidal anymore Medication Change: Yes (meds started) Medical Record Reviewed: Yes Mental Status Examination - Cognitive Function Orientation: Person, Place, Situation Memory: Impaired Attention: Poor Concentration: Poor Association: WNL Fund of Knowledge: Poor - Mood Mood: Depressed, Anxious - Affect Affect: Constricted - Speech Speech: Appropriate - Formal Thought Process Formal Thought Process: No Impairment - Suicidal Ideation Suicidal Ideation: No - Homicidal Ideation Homicidal Ideation: No Goal/Treatment Plan - Goal/Treatment Plan Need for Continued Stay: Severe depression anxiety, Discharge may exacerbated symptoms, Severe functional impairment, Other (medical clearance) Progress Toward Problem(s) and Goals/Treatment Plan: Zoloft for depression and anxiety May transfer to psych if cleared - RN knows GI consult is placed Watch for opioid wdw As needed medications All risks, benefits and alternatives of the meds discussed, and the pt agreed and understood. Supportive therapy and psychoeducation Teach healthy lifestyle methods, i.e. diet, exercise, meditation
--- NOTE | 2019-02-26 14:59 | CP.PCM.PN ---
Subjective - Date & Time of Evaluation Date of Evaluation: 02/26/19 Time of Evaluation: 14:59 Objective - Vital Signs/Intake and Output Vital Signs (last 24 hours): Temp Pulse Resp BP Pulse Ox 98.8 F 90 20 114/63 100 02/26/19 07:30 02/26/19 10:00 02/26/19 07:30 02/26/19 07:30 02/26/19 10:00 - Medications Medications: Current Medications Enoxaparin Sodium (Lovenox) 40 mg SC DAILY [facility] Last Admin: 02/26/19 09:47 Dose: 40 mg Pantoprazole Sodium (Protonix Inj) 40 mg IVP DAILY [facility] Last Admin: 02/26/19 09:47 Dose: 40 mg Sertraline HCl (Zoloft) 25 mg PO DAILY [facility] Last Admin: 02/26/19 12:30 Dose: 25 mg Trazodone HCl (Desyrel) 50 mg PO HS [facility] - Labs Labs: 02/24/19 00:52 02/26/19 07:17 PT 12.2 SECONDS (9.7-12.2) 02/25/19 17:04 INR 1.1 02/25/19 17:04 APTT 28 SECONDS (21-34) 02/25/19 17:04
--- NOTE | 2019-02-26 23:14 | PN ---
DATE: 02/26/2019 LOCATION: 651, Bed B. SUBJECTIVE: This is a 63 year-old female seen and examined early in rounds without reported significant clinical changes, initially seen for GI consultation on 02/25/2019 with the staff in the floor. Entire chart is reviewed including but not limited to the most recent lab and radiology study results, current and the previous medication list, current and the previous medical events. However, it has to be mentioned that the patient had much less appetite with less oral intake. No reported actual chest pain or palpitation. No reported active GI bleeding. Most recent lab results evaluated indicative of increased blood glucose level but normal cardiac markers as well as initially normal CBC. PHYSICAL EXAMINATION: GENERAL: A 63-year-old female, afebrile, somewhat more awake, alert. VITAL SIGNS: Pulse of 82, respiratory rate 20 to 22, blood pressure 120/66. HEENT: Showed pale, dry oral mucoid membrane. Nonicteric sclerae. LUNGS: Few scattered crepitation. Decreased air entry at bases. HEART: Positive S1 and S2. ABDOMEN: Soft with mild generalized tenderness. No mass or organomegaly. No rebound tenderness or guarding. EXTREMITIES: Without significant clubbing or cyanosis. NEUROLOGIC: No reported new neurological deficits, sensory or motor. IMPRESSION: 1. Change of mental status of unclear etiology with known history of depression. 2. Poor oral intake, most likely secondary to above. 3. Known history of hyperlipidemia and severe anxiety syndrome. 4. Re-exacerbation of peptic ulcer disease. SUGGESTIONS: 1. Agree with your plan. 2. Guaiac all the stools daily x3. 3. T3, T4, and TSH. 4. Further recommendations to follow. Varsha Lion MD
[2019-02-27] MEDS: Enoxaparin 40 mg Syringe SC SCH (09:59)
[2019-02-27] MEDS ORDERED: Peg-Electrolyte Oral Soln 4L (Golytely) PO ONE (11:00)
--- NOTE | 2019-02-27 13:47 | PCM.PYCHPN ---
Psychiatric Progress Note - Psychiatric Progress Note Patient seen today, length of contact: 15 min Patient Chief Complaint: "Better" Problems Identified/Issues Discussed: The pt is seen, chart reviewed, case discussed with staff. She looks much better Still denying suicidal ideations Wants to go home Future oriented Needs colonoscopy tomorrow Will likely d/c home as she now seems less in need of psych admission Medication Change: Yes (meds started) Medical Record Reviewed: Yes Mental Status Examination - Cognitive Function Orientation: Person, Place, Situation Memory: Impaired Attention: Poor Concentration: Poor Association: WNL Fund of Knowledge: Poor - Mood Mood: Depressed, Anxious - Affect Affect: Constricted - Speech Speech: Appropriate - Formal Thought Process Formal Thought Process: No Impairment - Suicidal Ideation Suicidal Ideation: No - Homicidal Ideation Homicidal Ideation: No Goal/Treatment Plan - Goal/Treatment Plan Need for Continued Stay: Severe depression anxiety, Discharge may exacerbated symptoms, Severe functional impairment, Other (medical clearance) Progress Toward Problem(s) and Goals/Treatment Plan: Zoloft for depression and anxiety GI consult is placed Watch for opioid wdw As needed medications All risks, benefits and alternatives of the meds discussed, and the pt agreed and understood. Supportive therapy and psychoeducation Teach healthy lifestyle methods, i.e. diet, exercise, meditation
[2019-02-27] MEDS ORDERED: Bisacodyl 5mg EC Tab PO ONE (17:00)
--- NOTE | 2019-02-27 17:35 | CP.PCM.PN ---
Subjective - Date & Time of Evaluation Date of Evaluation: 02/27/19 Time of Evaluation: 17:35 Objective - Vital Signs/Intake and Output Vital Signs (last 24 hours): Temp Pulse Resp BP Pulse Ox 97.8 F 79 20 134/82 93 L 02/27/19 15:45 02/27/19 15:45 02/27/19 15:45 02/27/19 15:45 02/27/19 15:45 Intake and Output: 02/27/19 02/27/19 06:59 18:59 Intake Total 580 Balance 580 - Medications Medications: Current Medications Enoxaparin Sodium (Lovenox) 40 mg SC DAILY [facility] Last Admin: 02/27/19 09:59 Dose: 40 mg Ondansetron HCl (Zofran Inj) 8 mg IVP Q6H [facility] Stop: 03/03/19 14:46 Last Admin: 02/27/19 14:21 Dose: 8 mg Pantoprazole Sodium (Protonix Inj) 40 mg IVP DAILY [facility] Last Admin: 02/27/19 09:55 Dose: 40 mg Sertraline HCl (Zoloft) 50 mg PO DAILY [facility] Trazodone HCl (Desyrel) 50 mg PO HS [facility] Last Admin: 02/26/19 21:50 Dose: 50 mg - Labs Labs: 02/24/19 00:52 02/26/19 07:17 PT 12.2 SECONDS (9.7-12.2) 02/25/19 17:04 INR 1.1 02/25/19 17:04 APTT 28 SECONDS (21-34) 02/25/19 17:04
--- NOTE | 2019-02-28 06:32 | PN ---
DATE: 02/27/2019 LOCATION: 651, Bed B. SUBJECTIVE: This is a 63-year-old female seen and examined in the presence of the staff in the floor as well as complaining of mild intermittent abdominal pain and slight rectal pain, but no reported nausea and vomiting. No reported active bleeding. The entire chart is reviewed including but not limited to the most recent lab and radiology study results and today's lab results showed blood glucose level of 133. The rest of the lab results are still pending. The patient had cancer markers of CA-125 and CEA reported to be normal. PHYSICAL EXAMINATION: GENERAL: A 63-year-old female, awake and alert. VITAL SIGNS: Afebrile with pulse of 80, respiratory rate 20 to 22, blood pressure 134/82. HEENT: Showed pale, dry oral mucous membrane. Nonicteric sclerae. LUNGS: Few scattered crepitation. Decreased air entry at bases. HEART: Positive S1 and S2. ABDOMEN: Soft with mild generalized tenderness. No mass or organomegaly. No rebound tenderness or guarding. EXTREMITIES: Without significant clubbing, cyanosis, or edema. NEUROLOGIC: No reported new neurological deficits, sensory or motor. IMPRESSION: 1. Re-exacerbation of peptic ulcer disease, improving gradually. 2. Reported recent history of suicidal attempt. 3. Known history of depression, severe anxiety syndrome. 4. Hyperlipidemia by history. 5. Reported history of colonoscopy with polypectomy, dated 06/01/2014 without reported followup by record and by the patient herself. 6. Change of mental status secondary to the above. 7. Reported poor oral intake recently. SUGGESTIONS: 1. Agree with your plan. 2. Due to the patient complained of lower recurrent abdominal pain and long history of colon polyp, last colonoscopy done about 5 years ago as per the records and the patient herself, we will schedule the patient for colonoscopy at a.m. 3. Further recommendations to follow and the case has to be with the primary MD as well as the psychiatry economics consultant and the patient's family. Varsha Lion MD
[2019-02-28] MEDS: Enoxaparin 40 mg Syringe SC SCH (10:20)
[2019-02-28] MEDS ORDERED: Lactated Ringer's 1,000 ML IV ONE (12:02)
--- NOTE | 2019-02-28 12:02 | PCM.PYCHPN ---
Psychiatric Progress Note - Psychiatric Progress Note Patient seen today, length of contact: 17 min Patient Chief Complaint: "Not good" Problems Identified/Issues Discussed: The pt is seen, chart reviewed, case discussed with staff. She is still anxious and now she says she cannot sleep "maybe 1 or 2 hours" Not acutely suicidal but at the same time not safe. Her daughter agrees - she has attempted suicide twice already. She also began talking about having "pain" which was not founded yet (a new colonoscopy is pending today) and that may tip her off towards more depression and another attempt. Last one was also due to perceived pain-related. Meds started already No SEs Support given She agreed to be transferred to [facility] Medication Change: Yes (meds started) Medical Record Reviewed: Yes Mental Status Examination - Cognitive Function Orientation: Person, Place, Situation Memory: Impaired Attention: Poor Concentration: Poor Association: WNL Fund of Knowledge: Poor - Mood Mood: Depressed, Anxious - Affect Affect: Constricted - Speech Speech: Appropriate - Formal Thought Process Formal Thought Process: No Impairment - Suicidal Ideation Suicidal Ideation: No - Homicidal Ideation Homicidal Ideation: No Goal/Treatment Plan - Goal/Treatment Plan Need for Continued Stay: Severe depression anxiety, Discharge may exacerbated symptoms, Severe functional impairment, Other (medical clearance) Progress Toward Problem(s) and Goals/Treatment Plan: Zoloft for depression and anxiety GI consult is placed As needed medications All risks, benefits and alternatives of the meds discussed, and the pt agreed and understood. Supportive therapy and psychoeducation Teach healthy lifestyle methods, i.e. diet, exercise, meditation Transfer to afetr colonoscopy.
[2019-02-28] MEDS ORDERED: Propofol 10 mg/ml Inj (20 ML) ONE (12:17)
[2019-02-28] MEDS ORDERED: Lidocaine Hydrochloride 5 ML INJ ONE (12:17)
[2019-02-28 17:09] VITALS: O2SAT 97
--- NOTE | 2019-02-28 17:14 | CP.PCM.PN ---
Objective - Vital Signs/Intake and Output Vital Signs (last 24 hours): Temp Pulse Resp BP Pulse Ox 98.1 F 87 18 123/65 97 02/28/19 15:33 02/28/19 15:33 02/28/19 15:33 02/28/19 15:33 02/28/19 15:33 Intake and Output: 02/28/19 02/28/19 06:59 18:59 Intake Total 480 Balance 480 - Medications Medications: Current Medications Enoxaparin Sodium (Lovenox) 40 mg SC DAILY [facility] Last Admin: 02/28/19 10:20 Dose: Not Given Hydrocortisone (Anusol-Hc) [address] BID [facility] Ondansetron HCl (Zofran Inj) 8 mg IVP Q6H [facility] Stop: 03/03/19 14:46 Last Admin: 02/28/19 14:19 Dose: 8 mg Pantoprazole Sodium (Protonix Inj) 40 mg IVP DAILY [facility] Last Admin: 02/28/19 10:27 Dose: 40 mg Sertraline HCl (Zoloft) 50 mg PO DAILY [facility] Last Admin: 02/28/19 13:35 Dose: 50 mg Trazodone HCl (Desyrel) 50 mg PO HS [facility] Last Admin: 02/27/19 21:51 Dose: 50 mg - Labs Labs: 02/24/19 00:52 02/26/19 07:17 PT 12.2 SECONDS (9.7-12.2) 02/25/19 17:04 INR 1.1 02/25/19 17:04 APTT 28 SECONDS (21-34) 02/25/19 17:04 Assessment and Plan - Assessment and Plan (Free Text) Assessment: patient seen and examined after colonoscopy. Alert, denies any complaints, tolerated diet.
[2019-02-28] MEDS: Hydrocortisone 2.5% Rectal Cream(30 gm) PR SCH (18:10)
[2019-03-01] MEDS: Hydrocortisone 2.5% Rectal Cream(30 gm) PR SCH ×2 (09:03→21:42)
[2019-03-01] MEDS: Enoxaparin 40 mg Syringe SC SCH (09:06)
--- NOTE | 2019-03-01 13:31 | PN ---
DATE: 03/01/2019 LOCATION: 529, bed A. SUBJECTIVE: This is a 63-year-old female, seen in rounds post colonoscopy with biopsy without any significant reported changes or reported active bleeding, was sent to the psychiatry evaluation and transferred to the psychiatry unit. Most recent lab results yesterday showed blood glucose level 120. Today's lab results still pending. PHYSICAL EXAMINATION: VITAL SIGNS: The patient has stable vital signs, was afebrile with blood pressure of 120/72, pulse 80, and respiratory rate 18 to 20. ABDOMEN: Soft abdominal examination. Bowel sounds are present. EXTREMITIES: Without edema, clubbing or cyanosis. NEUROLOGIC: No reported new neurological deficit, sensory or motor. IMPRESSION: 1. Known history of colon polyp, known in a recent colonoscopy. 2. Peptic ulcer disease. 3. History of depression. 4. History of hyperlipidemia. SUGGESTIONS: 1. Continue current management. 2. We will follow up with you germaine Varsha Lion MD
--- NOTE | 2019-03-01 18:29 | PCM.BM ---
<Rachel Earl - Last Filed: 03/01/19 18:26> Treatment Plan Problems - Problems identified on initial assessmt Social Isolation Date Initiated: 02/28/19 Time Initiated: 18:30 Assessment reference: NA Altered Sleep Patterns Date Initiated: 02/28/19 Time Initiated: 18:30 Assessment reference: NA Treatment assets and liabiliti Patient Assests: ADL independent, physically healthy - Milieu Protocol Maintain good personal hygiene: daily Encourage regular showers, daily Remind patient to perform daily oral care, every shift Assist patient to perform ADL's Maintain personal safety: every shift Educate patient to report safety concerns to staff, every shift Monitor environment for contraband/sharps Medication safety: Monitor for expected outcome, potential side effects: every shift, Assess barriers to learning: every shift, Assess readiness for medication education: every shift Milieu Narrative: Zoloft for depression and anxiety GI consult is placed As needed medications All risks, benefits and alternatives of the meds discussed, and the pt agreed and understood. Supportive therapy and psychoeducation Teach healthy lifestyle methods, i.e. diet, exercise, meditation Transfer to 5E afetr colonoscopy. Discharge/Continuing Care - Treatment Team Participation Patient/Family/SO Statement: Zoloft for depression and anxiety GI consult is placed As needed medications All risks, benefits and alternatives of the meds discussed, and the pt agreed and understood. Supportive therapy and psychoeducation Teach healthy lifestyle methods, i.e. diet, exercise, meditation Transfer to 5E afetr colonoscopy. <Mary Bautista - Last Filed: 03/03/19 10:09> Family Contact Family involvement: Family/SO is involved Family contact: Patient declines to allow family contact at present - Goals for Treatment Patient goals for treatment: "I need a therapist." Discharge/Continuing Care - Education Needs Education Needs: Patient Medication, Patient Coping Skills - Discharge Discharge Criteria: Tolerates medication w/o severe side effects, Reduction of target symptoms Discharge to:: Home - Treatment Team Participation Discussed with Family/SO: No Was Patient/Family/SO present at Treatment Team Meeting: Yes <Regulo Enamorado - Last Filed: 03/03/19 13:42> - Diagnosis (1) Major depression Status: Acute Interventions: 03/03/19 13:41 * Assess/adjust medications daily and /or as needed * See patient on an individual basis 7x/week to assess symptoms of depression * Monitor for side effects & effectiveness of medications * (2) Suicidal overdose Status: Acute Interventions: 03/03/19 13:42 * Assess/adjust medications daily and /or as needed * Discuss risks, benefits, side effects and alternatives of medications * See patient on an individual basis 7x/week to assess level of suicidal thoughts *
[2019-03-01] MEDS ORDERED: Diphenhydramine 1% Cream (1 oz) TOP PRN (23:35)
--- NOTE | 2019-03-01 23:40 | PCM.PYCHPN ---
Psychiatric Progress Note - Psychiatric Progress Note Patient seen today, length of contact: 18 min Patient Chief Complaint: "Depressed" Problems Identified/Issues Discussed: The pt is seen, chart reviewed, case discussed with staff. The pt is compliant with medications and reports no side-effects. Symptoms are improving but needs more time to stabilize. Pt attends groups and activities. Support given, psycho-education provided. After care discussed. Medication Change: Yes (meds adjusted) Medical Record Reviewed: Yes Mental Status Examination - Cognitive Function Orientation: Person, Place, Situation Memory: Impaired Attention: Poor Concentration: Poor Association: WNL Fund of Knowledge: Poor - Mood Mood: Depressed, Anxious - Affect Affect: Constricted - Speech Speech: Appropriate - Formal Thought Process Formal Thought Process: No Impairment - Suicidal Ideation Suicidal Ideation: No - Homicidal Ideation Homicidal Ideation: No Goal/Treatment Plan - Goal/Treatment Plan Need for Continued Stay: Severe depression anxiety, Discharge may exacerbated symptoms, Severe functional impairment Progress Toward Problem(s) and Goals/Treatment Plan: Zoloft for depression and anxiety GI consult is placed As needed medications All risks, benefits and alternatives of the meds discussed, and the pt agreed and understood. Supportive therapy and psychoeducation Teach healthy lifestyle methods, i.e. diet, exercise, meditation
[2019-03-02] MEDS: Hydrocortisone 2.5% Rectal Cream(30 gm) PR SCH ×2 (09:23→17:27)
[2019-03-02] MEDS ORDERED: Aluminum Hydroxide/Magnesium Hydroxide Susp (30 mL) PO PRN (13:24)
--- NOTE | 2019-03-02 14:29 | CON ---
DATE: 02/26/[address] Lion to Dr. Shaffer. I was called for GI consultation by the admitting medical team. The patient is seen and fully examined with the admitting medical staff on 02/26/2019 as requested by the admitting MD. The entire chart is reviewed including but not limited to most recent lab and radiology study results, current and the previous medication list, current and the previous medical events. A short handwritten consultation sheet left in the chart at the time of my GI consultation. Case discussed with all the involved staff in the case. This is a 63-year-old female who was admitted to the hospital through the emergency room being lethargic with generalized weakness and malaise. This consultation was done before. Please see my previous consultation sheet and progress note. Varsha Lion MD
--- NOTE | 2019-03-02 15:28 | PCM.PYCHPN ---
Psychiatric Progress Note - Psychiatric Progress Note Patient seen today, length of contact: 16 min Patient Chief Complaint: "No sleep" Problems Identified/Issues Discussed: The pt is seen, chart reviewed, case discussed with staff. Support and psychoeducation given, CBT used briefly Pt is improving slowly and needs more time, still has ongoing symptoms. Somewhat better but still depressed and insinuates she doesn't feel safe yet No SEs from medications, risks discussed. After care discussed - will go to outpt program Medication Change: Yes (Zoloft) Medical Record Reviewed: Yes Mental Status Examination - Cognitive Function Orientation: Person, Place, Situation Memory: Impaired Attention: Poor Concentration: Poor Association: WNL Fund of Knowledge: Poor - Mood Mood: Depressed, Anxious - Affect Affect: Constricted - Speech Speech: Appropriate - Formal Thought Process Formal Thought Process: No Impairment - Suicidal Ideation Suicidal Ideation: No - Homicidal Ideation Homicidal Ideation: No Goal/Treatment Plan - Goal/Treatment Plan Need for Continued Stay: Severe depression anxiety, Discharge may exacerbated symptoms, Severe functional impairment Progress Toward Problem(s) and Goals/Treatment Plan: Zoloft for depression and anxiety GI consult is placed As needed medications All risks, benefits and alternatives of the meds discussed, and the pt agreed and understood. Supportive therapy and psychoeducation Teach healthy lifestyle methods, i.e. diet, exercise, meditation Transfer to 5E afetr colonoscopy. Estimated Date of D/C: 03/04/19
--- NOTE | 2019-03-03 06:17 | CON ---
DATE: 02/25/[address] Lion to Dr. Jennifer Carter MD I was called for GI consultation by the admitting medical team. The patient is seen and fully examined with the staff in the floor on 02/25/2019 for GI consultation. The entire chart is reviewed including but not limited to most recent lab and radiology study results, current and the previous medication list, current and the previous medical events, allergy to medication list as well as all the available current and the previous medical records. A short handwritten consultation sheet left in the chart at the time of my GI consultation and immediately after my physical examination and GI consultation. Case discussed with all the consultants on the case at that time. HISTORY OF PRESENT ILLNESS: This 63-year-old female was admitted to the hospital through the emergency room being lethargic, after taking too many narcotics at home for which Narcan was given by the EMS prior and immediately on her arrival to the ER. The patient had a complaint of abdominal pain, postprandial abdominal distention. She stated that she has a history of colonoscopy with polypectomy done on 05/2014 after which she had no followup colonoscopy. PAST MEDICAL HISTORY: Including but not limited to, 1. Depression. 2. Severe anxiety syndrome. 3. Hyperlipidemia. 4. Status post tonsillectomy. 5. Peptic ulcer disease. 6. Colon polyp removed by colonoscopy about 5 years ago. FAMILY HISTORY: Unknown. SOCIAL HISTORY: Denied any recent history of alcohol intake or cigarette smoking. SUBSTANCE ABUSE: Positive for oxycodone. During the physical examination, the patient denied any chest pain, palpitation, significant shortness of breath or recent evidence of active GI bleeding. Blood workup post admission showed normal CBC with blood glucose level 108 with abnormal ABGs. Liver function tests reported to be within normal limits. CAT scan of the head report is seen. PHYSICAL EXAMINATION: GENERAL: A 63-year-old female, appeared to be awake, alert, oriented at the time she was seen by me with a complaint of mild abdominal pain and postprandial abdominal discomfort. VITAL SIGNS: Afebrile with pulse of 92, respiratory 20-22, blood pressure 132/86. HEENT: Showed dry oral mucous membrane. Nonicteric sclerae. LUNGS: Few scattered crepitation. Decreased air entry at bases. HEART: Positive S1 and S2 with increased rate. ABDOMEN: Soft with mild generalized tenderness and mild distention. No mass or organomegaly. No rebound tenderness or guarding. EXTREMITIES: Without significant clubbing, cyanosis or edema. No reported new neurological deficits, sensory or motor. IMPRESSION: 1. Severe anxiety syndrome with depression. 2. Known history of hyperlipidemia, peptic ulcer disease, status post tonsillectomy. 3. Colon polyps by history with recent intermittent change of bowel movement, the patient is in need for followup colonoscopy. SUGGESTIONS: 1. Agree with your plan. 2. H2 blockers. 3. Sectional abdominal and pelvic CAT scan. Cancer markers including CEA. T3, T4, TSH. 4. Endoscopic evaluation of the lower GI tract when the patient is more stable clinically and after adequate preparation. 5. Further recommendation to follow. Thank you for letting me participate in your patient's case management. Varsha Lion MD
[2019-03-03] MEDS: Hydrocortisone 2.5% Rectal Cream(30 gm) PR SCH ×2 (09:25→17:22)
--- NOTE | 2019-03-03 12:00 | PCM.PYCHPN ---
Psychiatric Progress Note - Psychiatric Progress Note Patient seen today, length of contact: 17 min Patient Chief Complaint: "I am not sleeping well" Problems Identified/Issues Discussed: The pt is seen, chart reviewed, case discussed with staff. Support and psychoeducation given, CBT and RI used briefly Pt is improving slowly and needs more time, still has ongoing symptoms. Still depressed and somewhat pessimistic No SEs from medications, risks discussed. After care discussed To be d/c'ed tomorrow Medication Change: Yes (meds adjusted) Medical Record Reviewed: Yes Mental Status Examination - Cognitive Function Orientation: Person, Place, Situation Memory: Impaired Attention: Poor Concentration: Poor Association: WNL Fund of Knowledge: Poor - Mood Mood: Depressed, Anxious - Affect Affect: Constricted - Speech Speech: Appropriate - Formal Thought Process Formal Thought Process: No Impairment - Suicidal Ideation Suicidal Ideation: No - Homicidal Ideation Homicidal Ideation: No Goal/Treatment Plan - Goal/Treatment Plan Need for Continued Stay: Severe depression anxiety, Discharge may exacerbated symptoms, Severe functional impairment Progress Toward Problem(s) and Goals/Treatment Plan: Zoloft for depression and anxiety: 75 today,100 mg tomorrow As needed medications All risks, benefits and alternatives of the meds discussed, and the pt agreed and understood. Supportive therapy and psychoeducation Teach healthy lifestyle methods, i.e. diet, exercise, meditation
[2019-03-04 06:59] VITALS: BP 132/83; PULSE 95; RESP 20; TEMP 98.6
[2019-03-04] MEDS: Hydrocortisone 2.5% Rectal Cream(30 gm) PR SCH (09:12)
--- NOTE | 2019-03-04 10:43 | PCM.PYCHDC ---
Mental Status Examination - Mental Status Examination Orientation: Person, Place, Situation, Time Memory: Intact Mood: Anxious Affect: Constricted Speech: Appropriate Attention: WNL Concentration: Poor Association: WNL Fund of Knowledge: WNL Formal Thought Process: No Impairment Suicidal Ideation: No Current Homicidal Ideation?: No Discharge Summary - Discharge Note Reason for Hospitalization: Suicide attempt Consultations:: List each consultation separately and include: 1. Reason for request. 2. Findings. 3. Follow-up Summary of Hospital Course include:: 1. Description of specific treatment plan utilized for patients during their course of treatmen. 2. Summarize the time- course for resolution of acute symptoms and/or regressed behaviors. 3. Describe issues identified and worked on during hospitalization. 4. Describe medication utilized. 5. Describe medical problems identified and treated. 6. Reassessment of suicide risk Summary of Hospital Course: Patient seen and examined, chart reviewed and treatment discussed. On admission: Patient is a 62 year old female, currently with three adult children. She lives in an apartment with her 46 year old son. She is unemployed, not on disability. Patient is lethargic and current history was mostly taken from daughter at bedside and patient records. Patient is consulted to [facility] due to oxycodone and Xanax overdose. She was found at home by her daughter on yesterday night, non arousable and lethargic. She was found with almost empty bottles of oxycodone and Xanax. The oxycodone and Xanax are prescribed by a nurse practitioner at her pain clinic, across the street from [facility] for ulcerative colitis. Patient has a history of overdose on her prescriptions, on 07/15/18. During this hospitalization, last night she told family members let me go to [facility], I dont want to be here. Pt says she is depressed. She wouldn't comment on suicide now. Pt has a terminally sick mother who is non-verbal. Patients daughter believes that this may have had an effect on patients current state. Psych Hx One more suicide attempt Fam Psych HX Daughter has depression too. Medications Oxycodone, Xanax, Metformin, Omeprazole, Lexapro, Bentyl, Clonazepam, Hyoscyamine Sulfate PMHx Collitis Social hx Denies Trauma Denies Hospital course: The pt was admitted to medicine after an OD suicide attempt but then transferred to psych and started on treatment with psychotherapy, support, psychoeducation and medications. Met with her daughter 2-3 times. The pt attended groups and activities, as well as milieu therapy. All the risks and benefits of medications are discussed and the patient understood and agreed. The pt improved with the treatments provided. After care discussed with the patient. She will attend [facility] outpt program she lives in [place]. - Final Diagnosis (DSM 5) Condition upon Discharge: STABLE DSM 5: Major Depressive d/o - recurrent, severe MAYELIN Ulcerative colitis Disposition: HOME/ ROUTINE Follow-up Treatment Plan: Continue below medications after discharge. Follow after care plan as discussed. Use relapse prevention skills Return to ER or call 911 if suicidal, homicidal or symptoms relapse. Stay away from stress, alcohol and drugs. See primary doctor regularly and get labs. Prescriptions/Medication Reconciliation: Pantoprazole Sodium [Protonix] 40 mg PO DAILY 30 Days ect Sertraline [Zoloft] 100 mg PO DAILY #100 tab traZODone [Desyrel] 100 mg PO HS #30 tab
== END 2019-03-04 12:45 | disposition home or self-care (01) | DRG 918 ==
LOC: C.ER 00:13 → C.9E 04:13 → C.6T 05:52 → OBSVTOIN 16:05 → C.5E 02-28 11:56
PROVIDERS: ADMIT Psychiatry & Neurology Psychiatry; ATTEND Psychiatry & Neurology Psychiatry
PROC: GZ56ZZZ Individual Psychotherapy, Supportive (ICD-10-PCS; 2019-02-28)
PROC: 0DBM8ZX Excision of Descending Colon, Via Natural or Artificial Opening Endoscopic, Diagnostic (ICD-10-PCS; principal; 2019-02-28 12:10)
DX: T40.2X2A Poisoning by other opioids, intentional self-harm, initial encounter (principal); F33.2 Major depressive disorder, recurrent severe without psychotic features; T42.4X2A Poisoning by benzodiazepines, intentional self-harm, initial encounter; Y92.009 Unspecified place in unspecified non-institutional (private) residence as the place of occurrence of the external cause; F41.9 Anxiety disorder, unspecified; E78.5 Hyperlipidemia, unspecified; K63.89 Other specified diseases of intestine; K64.8 Other hemorrhoids